=== PATIENT | female | born 1945 | race Caucasian/White ===

== ENCOUNTER → 2017-04-01 | Outpatient (CLI) | payer MEDICARE ==
[~2017-04-01] MED LIST: ESTR1PAT33 TD; LNS30CCR; PNT40TEC PO
== END ==
LOC: RAD 10:01
PROVIDERS: ATTEND Internal Medicine
DX: Z12.31 Encounter for screening mammogram for malignant neoplasm of breast (principal)
CPT/HCPCS: 77067

== ENCOUNTER → 2018-01-01 | Outpatient (CLI) | payer MEDICARE ==
[~2018-01-01] MED LIST changes: +CATHETER FLUSH 10 ML SYR IV PRN; +IOHEXOL 350 MG/ML 100 ML (OMNIPAQUE 350) VIAL IV ONE; +NS 250 ML (IVPB) BAG IV ONE
[2018-01-01 08:46] LABS: BUN/CREATININE RATIO 23; CREATININE SERUM 0.82 MG/DL (0.60-1.30); GFR ESTIMATED > 60
--- NOTE | 2018-01-01 09:47 | Diagnostic Imaging Report ---
PROCEDURE: CT sinuses without contrast TECHNIQUE: Multiple contiguous axial images were obtained through the sinuses without the use of intravenous contrast. Coronal and sagittal reformations were then performed. INDICATION: Ear and throat pain, particularly on the right side. FINDINGS: The frontal sinus is clear. The ethmoid air cells and the sphenoid sinus are clear. Bilateral maxillary sinuses are clear. No mucosal thickening or air-fluid levels are identified. The mastoids are well aerated. The ostiomeatal complexes are patent. The nasal septum is midline. There are osteoarthritic changes involving the temporomandibular joints bilaterally, greatest on the right where there is some flattening of the mandibular condyle and sclerosis. There is joint space narrowing on the right. Subchondral cyst formation of the mandibular condyles bilaterally is seen. IMPRESSION: 1. No evidence of sinusitis. 2. 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 Dictated by: Dictated on workstation # [id number]
--- NOTE | 2018-01-01 10:08 | Diagnostic Imaging Report ---
PROCEDURE: CT neck soft tissue with contrast. TECHNIQUE: Multiple contiguous axial images were obtained through the neck after the administration of contrast. INDICATION: Right ear and throat pain. Images through the basilar aspect of the brain reveal no abnormality. There is mild asymmetry of the level of the cerebellopontine angles with greater density in the right. This could be due to asymmetric venous distention. Nasopharynx and oropharynx are unremarkable in appearance. Parotid glands are normal and symmetric appearance. Artifact from metal dental implants limit evaluation. Submandibular salivary glands are also unremarkable in appearance. Dense calcification is seen in the anterior aspect of the right thyroid lobe without evidence of thyroid gland enlargement. There is no evidence of pathologic adenopathy seen within the cervical region. Upper lung braswell reveal diffuse centrilobular emphysema. The visualized paranasal sinuses are clear as are the mastoid air cells and middle ear cavities. IMPRESSION: Mild asymmetry at the level of cerebellopontine angles with greater density in the right could be artifactual. If clinically indicated, consideration could be given to MRI for further evaluation of the posterior fossa. Otherwise, there is no evidence of mass or pathologic adenopathy seen within the neck. There is diffuse cervical spondylosis with advanced degenerative disease at the C5-C6 level and apparent fusion of C6 and C7 vertebrae which may be chronic or congenital. Dictated by: Dictated on workstation # [id number]
== END ==
LOC: RAD 08:13
PROVIDERS: ATTEND Nurse Practitioner Family
DX: M47.812 Spondylosis without myelopathy or radiculopathy, cervical region (principal); Q04.8 Other specified congenital malformations of brain; M26.69 Other specified disorders of temporomandibular joint; H92.01 Otalgia, right ear
CPT/HCPCS: 36415; 70486; 70491; 82565; 84520

== ENCOUNTER → 2018-05-18 | Outpatient (CLI) | payer MEDICARE ==
[~2018-05-18] MED LIST changes: -CATHETER FLUSH 10 ML SYR IV PRN; -IOHEXOL 350 MG/ML 100 ML (OMNIPAQUE 350) VIAL IV ONE; -NS 250 ML (IVPB) BAG IV ONE
--- NOTE | 2018-05-18 13:24 | Diagnostic Imaging Report ---
INDICATION: Routine screening. COMPARISON: 04/01/2017 and 10/20/2015. TECHNIQUE: 2D and 3D bilateral screening mammography was performed with CAD. FINDINGS: Scattered fibroglandular densities are identified bilaterally. Scattered benign-appearing calcifications are again noted bilaterally. No malignant appearing microcalcifications are seen. There is a nodular density in the outer right breast posterior depth which is only seen on the exaggerated CC view. Additional views are recommended for further evaluation. No corresponding density on the MLO view is seen. This may represent a lymph node. The left breast is unremarkable. The axillae are unremarkable. IMPRESSION: There is a right breast density which is only seen on the exaggerated CC view. Additional views are recommended for further evaluation. ACR BI-RADS Category 0: Incomplete. (Needs additional imaging evaluation). Result letter will be mailed to the patient. Note: At least 10% of breast cancer is not imaged by mammography. Dictated by: Dictated on workstation # [id number]
== END ==
LOC: RAD 08:56
PROVIDERS: ATTEND Internal Medicine
DX: Z12.31 Encounter for screening mammogram for malignant neoplasm of breast (principal)
CPT/HCPCS: 77067

== ENCOUNTER → 2018-05-27 | Outpatient (CLI) | payer MEDICARE ==
--- NOTE | 2018-05-27 19:00 | Diagnostic Imaging Report ---
EXAMINATION: Ultrasound of the right breast limited. INDICATION: Abnormal mammogram. FINDINGS: The screening mammogram performed on 05/18/2018 noted a small nodular density in the lateral most aspect of the right breast. The diagnostic mammogram performed earlier today suggested that this finding was most likely a lymph node. On this study, there is indeed a hypoechoic lesion with a hyperechoic center in the 10 o'clock position of the breast roughly 10 cm from the nipple. This lesion measures 0.9 x 0.6 x 0.8 cm and has the typical appearance of a benign lymph node. I do suspect that this most likely corresponds to the density seen on the mammogram. Even so, it may prove worthwhile to have a short-term (six-month) follow-up mammogram for continued evaluation. There is also another smaller lymph node measuring 0.5 x 0.5 x 0.6 cm in the same area roughly 12 cm from the nipple. During the course of the exam, a 3.8 x 1.2 x 1.9 cm lymph node was also identified in the right axilla. While this lymph node is enlarged, I suspect it is due to fatty replacement and not to neoplastic involvement. IMPRESSION: 1. The nodular density seen on the screening mammogram is felt to represent a lymph node. A six-month follow-up exam will be recommended for continued evaluation. 2. There is no evidence of malignancy. 3. The enlarged lymph node in the right axilla appears to be replaced by fat and consequently is most likely a benign process. ACR BI-RADS Category 3: Probably benign findings. Dictated by: Dictated on workstation # [id number]
--- NOTE | 2018-05-28 19:15 | Diagnostic Imaging Report ---
INDICATION: Abnormal mammogram. EXAMINATION: Right breast digital diagnostic mammogram with CAD. The current study was also evaluated with a Computer Aided Detection (CAD) system. FINDINGS: The recent screening mammogram of 05/18/2018 noted a density in the far lateral aspect of the right breast on the XCC view. This finding was not evident on the XCC view of the 04/01/2017 exam, although there is more of the breast tissue included on the current exam. There seems to be a corresponding density on the MLO view. This density was present on the prior study of 10/18/2014 and I suspect that this density is a lymph node. Even so, I would recommend that ultrasound of the right breast be performed for further study. IMPRESSION: Ultrasound of the right breast would be recommend for further evaluation. ACR BI-RADS Category 0: Incomplete. (Needs additional imaging evaluation). Result letter will be mailed to the patient. Note: At least 10% of breast cancer is not imaged by mammography. Dictated by: Dictated on workstation # [id number]
== END ==
LOC: RAD 07:42
PROVIDERS: ATTEND Internal Medicine
DX: N63.10 Unspecified lump in the right breast, unspecified quadrant (principal)

== ENCOUNTER → 2019-02-04 | Outpatient (CLI) | payer MEDICARE ==
--- NOTE | 2019-02-04 09:46 | Diagnostic Imaging Report ---
INDICATION: HISTORY OF MELANOMA COMPARISON: 08/05/2016 FINDINGS: Frontal and lateral views of the chest demonstrate normal heart size and pulmonary vascularity. The lungs are clear. There are no signs of infiltrate, pleural effusions or pneumothoraces. The visualized osseous structures show no acute abnormalities. IMPRESSION: 1. No acute process. No signs of infiltrates, effusions or pneumothoraces. Dictated by: Dictated on workstation # [id number]
== END ==
LOC: RAD 08:51
PROVIDERS: ATTEND Nurse Practitioner
DX: Z85.820 Personal history of malignant melanoma of skin (principal)
CPT/HCPCS: 71046

== ENCOUNTER → 2019-05-19 | Outpatient (CLI) | payer MEDICARE ==
--- NOTE | 2019-05-19 12:28 | Diagnostic Imaging Report ---
INDICATION: Palpable lump in the left breast. COMPARISON: Correlation is made with the diagnostic mammogram from earlier t his same day. FINDINGS: Sonographic interrogation of the area of lump in the lateral left breast was performed. No sonographic abnormality is seen. No solid or cystic mass is detected. IMPRESSION: No sonographic abnormality is seen. Close clinical and self breast exams are recommended to confirm stability of the palpable abnormality. ACR BI-RADS Category 1: Negative. Dictated by: Dictated on workstation # [id number]
--- NOTE | 2019-05-19 12:30 | Diagnostic Imaging Report ---
INDICATION: Left breast lump. COMPARISON: 05/18/2018. TECHNIQUE: 2D and 3D bilateral diagnostic mammography was performed with CAD. FINDINGS: Scattered fibroglandular densities are identified bilaterally. The parenchymal pattern is stable. No mass or malignant-appearing microcalcifications are seen. There are benign calcifications bilaterally. The axillae are unremarkable. IMPRESSION: Stable bilateral mammograms. No suspicious findings are seen. Even so, directed sonographic interrogation of the area of palpable abnormality in the upper-outer left breast is recommended and will be performed today. ACR BI-RADS Category 0: Incomplete. (Needs additional imaging evaluation). Result letter will be mailed to the patient. Note: At least 10% of breast cancer is not imaged by mammography. Dictated by: Dictated on workstation # [id number]
== END ==
LOC: RAD 09:30
PROVIDERS: ATTEND Internal Medicine
DX: Z12.31 Encounter for screening mammogram for malignant neoplasm of breast (principal); N63.20 Unspecified lump in the left breast, unspecified quadrant
CPT/HCPCS: 76642; 77066

== ENCOUNTER → 2020-02-18 | Outpatient (CLI) | payer MEDICARE | LOC: LABNPT 13:40 | PROVIDERS: ATTEND Internal Medicine | DX: R50.9 Fever, unspecified (principal); R53.83 Other fatigue; J02.9 Acute pharyngitis, unspecified; R51 Headache | CPT/HCPCS: 87430; 87635; 87804 ==

== ENCOUNTER 2020-05-07 09:54 | Emergency (ER) | payer MEDICARE ==
--- NOTE | 2020-05-07 10:10 | NUR ---
PT AT NURSES [facility] ET STATES SHE IS ONLY HERE FOR A COVID TEST AND WOULD GO HOME AND DUE IT SOME OTHER TIME. PT WATCHES SEVERAL EMRGENT PEOPLE BEING BROUGHT INTO COVID ER AND DECIDED TO LEAVE AFTER.
--- OUTSIDE RECORDS SUMMARY | 2020-05-07 10:50 | XMS REPORT | Encounter Summary ---
Author Author [facility] Organization [facility] Address Unknown Phone Unavailable Care Team Providers Care Digital Color Press Operator Name Role Phone Farhat Varghese PCP Encounter Details Care Team Description Date Type Department [facility] Provider, MD Torres 04/12/2015 [facility] Visit Social History Date Tobacco Use Types Packs/Day Years Used Never Assessed Sex Assigned at Date Recorded Not on file Industry Job Start Date Occupation Not on file Not on file Not on file Travel End Travel History Travel Start No recent travel history available. documented as of this encounter Plan of Treatment Not on filedocumented as of this encounter Visit Diagnoses Not on filedocumented in this encounter
--- OUTSIDE RECORDS SUMMARY | 2020-05-07 10:50 | XMS REPORT | Encounter Summary ---
Author Author [facility] Organization [facility] Address Unknown Phone Unavailable Care Team Providers Care Marine Engine Machinist Name Role Phone Farhat Varghese PCP Encounter Details Care Team Description Date Type Department Dyana Álvarez RN [facility]14[facility] [address] [place] [address] Social History Date Tobacco Use Types Packs/Day Years Used Former Smoker Sex Assigned at Date Recorded Not on file Industry Job Start Date Occupation Not on file Not on file Not on file Travel End Travel History Travel Start No recent travel history available. documented as of this encounter Plan of Treatment Not on filedocumented as of this encounter Visit Diagnoses Not on filedocumented in this encounter
--- OUTSIDE RECORDS SUMMARY | 2020-05-07 10:50 | XMS REPORT | Encounter Summary ---
Author Author [facility] Organization [facility] Address Unknown Phone Unavailable Care Team Providers Care Enamel Buffer Name Role Phone Farhat Varghese PCP Encounter Details Care Team Description Date Type Department Lisa Luz RN 04/13/2015 Orders [place] [facility] [address] [place] [id number] Social History Date Tobacco Use Types Packs/Day Years Used Never Assessed Sex Assigned at Date Recorded Not on file Industry Job Start Date Occupation Not on file Not on file Not on file Travel End Travel History Travel Start No recent travel history available. 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 Comprehensive electrophysiology stud y including catheter placement within the right atrium, righ t ventricle, CS and His position for recording and stimulation purposes. 2. 3D electroanatomical mapping using Aviacomm system. 3. Radiofrequency catheter ablation of the slow pathway. 4. Postablation electrophysiology study with attempted arrhythmia induction. 5. Programmed stimulation during isopro terenol administration. ATTENDING STACKER: Tiffany Foster FELLOW STACKER: Tj Varghese COMPLICATIONS: None. ESTIMATED BLOOD LOSS: 10 ml. ANESTHESIA: Intravenous sedation and lo stef anesthetic INDICATIONS FOR THE PROCEDURE: The patient is a 69 y.o. year-old femal e with a history of recurrent palpitations and documented s upraventricular tachycardia that was a short RP tachyca rdia with a HR of ~ 200 BPM. . PROCEDURE AND FINDINGS: After informed consent was obtained, th e patient was taken to the electrophysiology laboratory in a fasti ng state. Bilateral groins were prepped and draped in the usual st erile fashion. Approximately 10 milliliters of 2% lido sonal solution were infiltrated into the each area overlyin g the femoral veins. Using the modified Seldinger technique and un jocelyne fluoroscopic guidance, 2 short 7 sheaths were inserted in each vein. Diagnostic quadrapolar catheters were advanced thr ough these sheaths to the right ventricular apex, the high right atrium and the His position as well as a decapolar cathete r to the CS for pacing and recording. 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 The tachycardia cycle le ngth was 382 msec and the septal VA time was 58 msec. Isoproter enol was not required to induce the tachycardia. VA conduction was decremental and there was no other inducible tachycardia. At this point, the atrial catheter was removed and replaced with a 4mm tip EPT standard curve, extended distal mapping and ablation catheter to identify optimal s ites for ablation. Radiofrequency ablation was performed a t a maximum power of 50 hartley and maximum temperature of 55 deg francoise with resulting runs of accelerated junctional rhythm, parti cularly with the first application. Following ablation, there no evidence o f residual slow pathway conduction. There was no inducible ta chycardia either without or with isoproterenol. The catheters and sheaths were removed from the patient and hemostasis was achieved with direct pre ssure. The patient was transferred to the recovery area in sta ble condition. BASELINE ELECTROPHYSIOLOGIC STUDY: The rhythm was Sinus at a cycle length of 1143 msec, a CO interval of 170 msec, a QRS of 90 msec, a QT interval of 433 msec, an AH interval of 135 msec and an HV interval of 44 msec. The AV block cycle length was 360 msec. The AV node fast pathway effective refractory period was 240 m[address] c at a drive train cycle length of 600 msec. Reproducible echo beats occurred initially at [address] a [address] train of 600 m sec. The slow pathway effective refractory was less than 240 msec. The VA block cycle length was 360 msec. The VAERP was 34 0 at 600 msec ELECTROPHYSIOLOGIC STUDY ON ISOPROTEREN OL: The rhythm was Sinus at a cycle length of 560 msec, a CO interval of 120 msec, a QRS of 73 msec, a QT int erval of 315 msec,. The AV block cycle length was 300 msec. The AV node fast pathway effective refractory period was less th an [address] train cycle length of 450 msec. The VA block cycle length was 240 msec. POST-ABLATION ELECTROPHYSIOLOGIC STUDY: The rhythm was Sinus at a cycle length of 680 msec, a CO interval of 189 msec, a QRS of 72 msec, a QT int erval of 349 msec, an AH interval of 82 msec and an HV interval of 39 msec. The AV block cycle length was 380 msec. The AV node fast pathway effective refractory period was 330 msec at a dri ve train cycle length of 600 msec. The VA block cycle length was 350 msec. SUMMARY: Successful catheter ablation f or atrioventricular herman reentrant tachycardia PLAN: 1. Discontinue metoprolol. 2. Follow-up with an [facility] EP nurse dick grace in 2 months and with the patient's primary physician apuvra ortiz. I was present for and supervised the [facility] electrophysiology fellow throughout the entire procedure. Trip Freire MD documented in this encounter Visit Diagnoses Not on filedocumented in this encounter
--- OUTSIDE RECORDS SUMMARY | 2020-05-07 10:50 | XMS REPORT | Encounter Summary ---
Author Author [facility] Organization [facility] Address Unknown Phone Unavailable Care Team Providers Care Cryptozoologist Name Role Phone Farhat Varghese PCP Encounter Details Care Team Description Date Type Department 04/18/2015 [facility] - [facility] C Visit Social History Date Tobacco Use Types Packs/Day Years Used Quit: 04/17/1999 Former Smoker 1.5 30 Smokeless Tobacco: Never Used Comments: current nicorette gum use nilson y Drinks/Week oz/Week Comments Alcohol Use 14 Glasses of wine 14.0 2 glasses of wine per night Yes Sex Assigned at Date Recorded Not on file Industry Job Start Date Occupation Not on file Not on file Not on file Travel End Travel History Travel Start No recent travel history available. documented as of this encounter Plan of Treatment Not on filedocumented as of this encounter Visit Diagnoses Not on filedocumented in this encounter
--- OUTSIDE RECORDS SUMMARY | 2020-05-07 10:50 | XMS REPORT | Encounter Summary ---
Author Author [facility] Organization [facility] Address Unknown Phone Unavailable Care Team Providers Care Roller Checker Name Role Phone Farhat Varhgese PCP Encounter Details Care Team Description Date Type Department [facility] [place] [address] [facility] [address] [place] [address] [phone] [facility], Physician 04/17/2015 Hospital [facility] CVPREP Recovery H4S - Encounter [id number] [facility] 04/18/2015 [place] [address] Social History Date Tobacco Use Types Packs/Day [...] history available. documented as of this encounter Last Filed Vital Signs Reading Time Taken Comments Vital Sign 109/54 04/18/2015 7:57 AM CDT Blood Pressure 70 04/18/2015 7:57 AM CDT Pulse 36.6 C (97.8 F) 04/18/2015 7:57 AM CDT Temperature 18 04/18/2015 7:57 AM CDT Respiratory Rate 96% 04/18/2015 7:57 AM CDT Oxygen Saturation - - Inhaled Oxygen Concentration 67.1 kg (147 lb 14.9 oz) 04/18/2015 12:00 AM CDT Weight 165.1 cm (5' 5") 04/17/2015 9:46 AM CDT Height 24.62 04/17/2015 9:46 AM CDT Body Mass Index documented in this encounter Discharge Summaries * Juanita Gutierrez RN ANP - 04/18/2015 8:13 AM CDT [facility] Discharge Summary- Post Ablation Name: Milagro Mock CPI: [id number] Date of : 1945 Primary care physician: Farhat Varghese MD Date of admission: 04/17/2015 Date of discharge: 04/18/2015 Admitting physician: Physician [facility] We are discharging Milagro Mock from [facility] in the [facility] on . As you know, she is a 69 y.o. female patient with a his tory of tachypalpitations despite metoprolol, which was associated with increase d fatigue who was seen and examined by Dr. Freire and deemed appropriate for a n electrophysiology study and ablation procedure. The patient underwent electrophysiology study and radiofrequency ablation on . Dr. Trip Freire MD performed a successful and uncomplicated electrophysiol ogy study and ablation procedure. 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 We will plan on discontinuing metoprolol. We will make arrangements for follow up at two months in our [facility] office with our EP advanced practice provider. Physical Examination: Vitals: BP 109/54 | Pulse 70 | Temp(Src) 36.6 C (97.8 F) (Oral) | Resp 18 | Ht 1.651 m (5' 5") | Wt 67.1 kg (147 lb 14.9 oz) | BMI 24.62 kg/m2 | SpO2 96% -Chest x-ray reviewed showing no effusion or pneumothorax. -EKG reveals SR rate 65 bpm. DE 200 ms QT 420 ms/ cQT 437 ms. -Neuro exam was intact. -Lungs were clear. -Cardiac examination reveals a regular rate and rhythm. -Abdomen is soft, nontender, and nondistended. -The procedure site is free from hematoma or swelling. There was no erythema. -The dressings is dry and intact. Left groin site with slight eccymosis no bruit or hematoma. -Extremities are free from clubbing, cyanosis, or edema. -Pulses are 2+ and equal bilaterally. -Skin is free of rashes. Laboratory Findings: CBC: Most Recent Result within the last 7 days Lab Units 04/17/15 0958 WBC TH/uL 6.91 HEMOGLOBIN g/dL 12.7 HEMATOCRIT % 39 PLATELET COUNT TH/uL 291 BMP: Most Recent Result within the last 7 days Lab Units 04/17/15 0958 SODIUM MEQ/L 142 POTASSIUM MEQ/L 4.9 CHLORIDE MEQ/L 107 CARBON DIOXIDE MEQ/L 28 BLOOD UREA NITROGEN mg/dL 22 CALCIUM mg/dL 9.8 INR: Most Recent Result within the last 7 days Lab Units 04/17/15 0958 INR 1.1 Discharge Diagnoses: Active Hospital Problems Diagnosis SNOMED CT(R) Date Noted Supraventricular tachycardia SUPRAVENTRICULAR TACHYCARDIA 04/17/2015 Resolved Hospital Problems Diagnosis SNOMED CT(R) Date Noted Date Resolved No resolved problems to display. Procedures: Electrophysiological study and electrophysiology study and radiofrequency ablati on that was performed by Dr. Trip Freire MD on 04/17/2015. PROCEDURES PERFORMED: 1. Comprehensive electrophysiology study including catheter placement within the right atrium, right ventricle, CS and His position for recording and stimulation purposes. 2. 3D electroanatomical mapping using the KAYLEY system. 3. Radiofrequency catheter ablation of the slow pathway. 4. Postablation electrophysiology study with attempted arrhythmia induction. 5. Programmed stimulation during isoproterenol administration. Condition at discharge: Stable Disposition: Home Diet: Heart healthy diet Discharge Instructions: per Dr. Trip Freire MD 1. The patient will continue a heart healthy diet. 2. Activity restrictions has been reviewed with the patient and includes avoid ance of lifting greater than 10 pounds for the next week. The patient is to mon itor the procedure site for bleeding, drainage, progressive swelling, the presen ce of fever or chills and to call our office should any of these symptoms occur. 3. The patient should also monitor for symptoms of fever greater than 101, cou gh that is persistent in nature, exertional dyspnea with minimal activity, persi stent tachy palpitations greater than 24 hours or symptomatic, difficult or pain ful swallowing and to be in touch with our office regarding followup. Follow up: As noted above, we will schedule this patient for follow-up in two mo hs in our [facility] office with our EP advanced practice provider. Discharge coordination time: Greater than 30 minutes. Discharge medications: Medication List CONTINUE taking these medications CENTRUM SILVER ORAL 1 tablet, Oral, Daily estradiol 0.5 MG tablet Commonly known as: ESTRACE 0.5 mg, Oral, Daily FLONASE 50 mcg/actuation nasal spray Generic drug: fluticasone 1 spray, Nasal, Daily loratadine 10 mg tablet Commonly known as: CLARITIN 10 mg, Oral, Daily pantoprazole 40 MG tablet Commonly known as: PROTONIX 40 mg, Oral, Every morning triamterene-hydrochlorothiazide 37.5-25 mg per capsule Commonly known as: DYAZIDE 1 capsule, Oral, Daily We appreciate the opportunity to have participated in this patients care. Pl ease do not hesitate to contact us should you have any questions concerning Marie Mock's care. Juanita Gutierrez 04/18/2015 8:13 AM documented in this encounter Discharge Instructions * Attachments The following attachments cannot be sent through Care Everywhere.* CARDIAC ABLATION, DISCHARGE INSTRUCTIONS FOR (THAI) documented in this encounter Medications at Time of Discharge Start Date End Date Medication Sig Dispensed Refills estradiol (ESTRACE) 0.5 Take 0.5 mg 0 MG tablet by mouth daily. 03/01/2015 estradiol (ESTRACE) 0.5 take 1 tablet 1 0 MG tablet (0.5MG) by oral route every day fluticasone (FLONASE) 50 Use 1 spray 0 mcg/actuation nasal spray in each nostril daily. 04/12/2015 fluticasone (FLONASE) 50 inhale 1 1 0 mcg/actuation nasal spray spray each nostril by intranasal route every day in each nostril FOLIC Take 1 tablet 0 ACID/MULTIVIT-MIN/LUTEIN by mouth (CENTRUM SILVER ORAL) daily. loratadine (CLARITIN) 10 Take 10 mg by 0 mg tablet mouth daily. 03/01/2015 loratadine (CLARITIN) 10 take 1 tablet 1 0 mg tablet (10MG) by oral route every day 03/01/2015 metoprolol succinate take 1 tablet 30 6 (TOPROL-XL) 50 MG 24 hr by oral route tablet every day 03/01/2015 jxepplqf-zxazrhk-exby-lut take one 1 0 ein (CENTRUM SILVER ULTRA tablet daily WOMEN'S) Tab pantoprazole (PROTONIX) Take 40 mg by 0 40 MG tablet mouth every morning. 03/01/2015 pantoprazole (PROTONIX) take 1 tablet 1 0 40 MG tablet (40MG) by oral route every day triamterene-hydrochloroth Take 1 0 iazide (DYAZIDE) 37.5-25 capsule by mg per capsule mouth daily. 03/01/2015 triamterene-hydrochloroth take 1 tablet 30 0 iazide (MAXZIDE-25) by ORAL route 37.5-25 mg per tablet every day 07/01/2014 06/07/2015 estradiol (ESTRACE) 0.5 take 1 tablet 1 0 MG tablet (0.5MG) by oral route every day 07/01/2014 06/07/2015 fluticasone (CUTIVATE) apply by 1 0 0.005 % ointment topical route 2 times every day a thin layer to the affected area(s) (temporary) 07/01/2014 06/07/2015 loratadine (CLARITIN) 10 take 1 tablet 1 0 mg tablet (10MG) by oral route every day 01/19/2015 06/07/2015 metoprolol succinate TAKE ONE 30 6 (TOPROL-XL) 25 MG 24 hr TABLET BY tablet MOUTH ONCE DAILY 07/21/2014 06/07/2015 metoprolol succinate take 1 tablet 30 5 (TOPROL-XL) 25 MG 24 hr (25MG) by tablet oral route every day 01/31/2015 06/07/2015 metoprolol succinate take 1 tablet 30 6 (TOPROL-XL) 50 MG 24 hr by oral route tablet every day 07/01/2014 06/07/2015 pyovyqyu-uockvad-geif-lut take one 1 0 ein (CENTRUM SILVER ULTRA tablet daily WOMEN'S) Tab 07/01/2014 06/07/2015 pantoprazole (PROTONIX) take 1 tablet 1 0 40 MG tablet (40MG) by oral route every day 07/01/2014 06/07/2015 propranolol (INDERAL) 60 take 1 tablet 30 3 MG tablet (60MG) by oral route NEEDED for rapid heartbeats documented as of this encounter Procedure Notes * Trip Freire MD - 04/17/2015 4:21 PM CDT Associated Order(s): ELECTROPHYSIOLOGY STUDY POSSIBLE RFA OF SVT [facility] CARDIAC ELECTROPHYSIOLOGY SERVICE OPERATIVE REPORT Date of Procedure: 04/17/2015 PRE-OPERATIVE DIAGNOSIS: Supraventricular tachycardia POST-OPERATIVE DIAGNOSIS: AV herman reentrant tachycardia PROCEDURES PERFORMED: 1. Comprehensive electrophysiology study including catheter placement within the right atrium, right ventricle, CS and His position for recording and stimulation purposes. 2. 3D electroanatomical mapping using the KAYLEY system. 3. Radiofrequency catheter ablation of the slow pathway. 4. Postablation electrophysiology study with attempted arrhythmia induction. 5. Programmed stimulation during isoproterenol administration. ATTENDING WOOD HANDLER: Trip Freire MD FELLOW WOOD HANDLER: Tj Varghese COMPLICATIONS: None. ESTIMATED BLOOD LOSS: 10 ml. ANESTHESIA: Intravenous sedation and local anesthetic INDICATIONS FOR THE PROCEDURE: The patient is a 69 y.o. year-old female with a history of recurrent palpitation s and documented supraventricular tachycardia that was a short RP tachycardia wi th a HR of ~ 200 BPM. . PROCEDURE AND FINDINGS: After informed consent was obtained, the patient was taken to the electrophysiol ogy laboratory in a fasting state. Bilateral groins were prepped and draped in t he usual sterile fashion. Approximately 10 milliliters of 2% lidocaine solution were infiltrated into the each area overlying the femoral veins. Using the modif ied Seldinger technique and under fluoroscopic guidance, 2 short 7 sheaths were inserted in each vein. Diagnostic quadrapolar catheters were advanced through these sheaths to the right ventricular apex, the high right atrium and the His position as well as a decapolar catheter to the CS for pacing and recording. The baseline electrophysiologic study was notable for dual AV herman physiology a nd inducible supraventricular tachycardia confirmed to be typical AV herman reent rant tachycardia by a short septal VA time and termination with V pacing without atrial activation. The tachycardia cycle length was 382 msec and the septal VA time was 58 msec. Isoproterenol was not required to induce the tachycardia. VA conduction was decremental and there was no other inducible tachycardia. At this point, the atrial catheter was removed and replaced with a 4mm tip EPT s tandard curve, extended distal mapping and ablation catheter to identify optimal sites for ablation. Radiofrequency ablation was performed at a maximum power of 50 hartley and maximum temperature of 55 degrees with resulting runs of accelera meagan junctional rhythm, particularly with the first application. Following ablation, there no evidence of residual slow pathway conduction. Ther e was no inducible tachycardia either without or with isoproterenol. The catheters and sheaths were removed from the patient and hemostasis was achie yasmany with direct pressure. The patient was transferred to the recovery area in s table condition. BASELINE ELECTROPHYSIOLOGIC STUDY: The rhythm was Sinus at a cycle length of 1143 msec, a DE interval of 170 msec, a QRS of 90 msec, a QT interval of 433 msec, an AH interval of 135 msec and an H V interval of 44 msec. The AV block cycle length was 360 msec. The AV node fast pathway effective refractory period was [address] train cycle length of 600 msec. Reproducible echo beats occurred initially at [address] a [address] e train of 600 msec. The slow pathway effective refractory was less than 240 m sec. The VA block cycle length was 360 msec. The VAERP was 340 at 600 msec ELECTROPHYSIOLOGIC STUDY ON ISOPROTERENOL: The rhythm was Sinus at a cycle length of 560 msec, a DE interval of 120 msec, a QRS of 73 msec, a QT interval of 315 msec,. The AV block cycle length was 300 msec. The AV node fast pathway effective refractory period was less than 200 m sec at a drive train cycle length of 450 msec. The VA block cycle length was 2 40 msec. POST-ABLATION ELECTROPHYSIOLOGIC STUDY: The rhythm was Sinus at a cycle length of 680 msec, a DE interval of 189 msec, a QRS of 72 msec, a QT interval of 349 msec, an AH interval of 82 msec and an HV interval of 39 msec. The AV block cycle length was 380 msec. The AV node fast p athway effective refractory period was [address] train cycle length of 600 msec. The VA block cycle length was 350 msec. SUMMARY: Successful catheter ablation for atrioventricular herman reentrant tachy cardia PLAN: 1. Discontinue metoprolol. 2. Follow-up with an [facility] EP nurse practitioner in 2 months and with the patient 's primary physician thereafter. I was present for and supervised the cardiac electrophysiology fellow throughout the entire procedure. Trip Freire MD documented in this encounter Nursing Notes * Enriqueta Becerra RN - 04/18/2015 10:00 AM CDT Pt discharge instructions reviewed (written and verbal) with pt and spouse. The y voice understanding of all instructions. Pt d/c'd via ambulation with all bel ongings without difficulty with [facility] staff accompanying pt to private vehicle to home, self care. documented in this encounter Miscellaneous Notes * Plan of Care - Ruben Gonzalez RN - 04/18/2015 2:11 AM CDT Problem: Knowledge Deficit Goal: Patient/family/caregiver demonstrates understanding of disease process, tr eatment plan, medications, and discharge instructions Outcome: Progressing Problem: Pain Goal: Patients pain/discomfort is manageable Outcome: Progressing Problem: Skin Integrity Goal: Skin integrity is maintained or improved Outcome: Progressing * Sedation Documentation - Trip Freire MD - 04/17/2015 12:32 PM CDT [facility] Pre-Sedation Assessment H&P Update Chief complaint/ History of present illness/ Indication for procedure: SVT Planned Procedure/ Treatment: Electrophysiology Study and RF Ablation History and Physical Status: Current H&P (<30 days) on chart, reviewed, and physical exam performed within 24 hours of procedure. No changes noted. Pre-Sedation/[place] ASA Status: I - Normal healthy patient Plan for Anesthesia: Level 2 (Moderate - EP Lab) Airway Assessment: WNL I saw and examined the patient. I reviewed and agree with the cardiovascular fel low's note. Trip Freire MD documented in this encounter Plan of Treatment Not on filedocumented as of this encounter Procedures Comments Procedure Name Priority Date/Time Associated Diag nosis LAB SUMMARY 04/19/2015 2:27 AM CDT ELECTROPHYSIOLOGY STUDY Routine 04/18/2015 POSSIBLE RFA OF SVT 9:07 AM CDT ECG Routine 04/18/2015 4:03 AM CDT OXYGEN Routine 04/17/2015 4:33 PM CDT PULSE OXIMETRY, Routine 04/17/2015 CONTINUOUS 4:33 PM CDT CBC AND DIFF (MANUAL DIFF STAT 04/17/2015 IF NECESSARY) 9:58 AM CDT COAGULATION SCREEN STAT 04/17/2015 9:58 AM CDT BASIC METABOLIC PANEL STAT 04/17/2015 9:58 AM CDT ECG Routine 04/17/2015 9:41 AM CDT documented in this encounter Results * LAB SUMMARY (04/19/2015 2:27 AM CDT) Narrative Performed At This result has an attachment that is n ot available. Ordered by an unspecified provider. * Electrocardiogram (ECG) (04/18/2015 4:03 AM CDT) Only the most recent of 2 results within the time period is included. Specimen Narrative Performed At [facility] Test Date: 2015-04-18 Pat Name: MILAGRO MOCK Department: HS4 Room: [facility] Gender: F Overseamer: [id number] : 1945 Requested By: Order Number: [id number] Doug MD: Malina Merlos Measurements Intervals [place] Rate: 65 P: DE: QRS: 13 QRSD: 72 T: 34 QT: 420 QTc: 437 Interpretive Statements sinus rhythm Electronically Signed On 04-19-2015 18:1 8:52 CDT by Malina Merlos Performing Organization Address City/State/Zipcode Ph one Number [facility] * Coagulation Screen (04/17/2015 9:58 AM CDT) Protime 13.7 11.4 - 15.0 sec [facility] INR 1.1 0.8 - 1.2 [facility] APTT 30 22 - 34 sec [facility] Fibrinogen 238 146 - 390 mg/dL [facility] Specimen Blood Performing Organization Address City/[facility] one Number [facility] [address] [place] [address] LABORATORIES * CBC and Diff (manual diff if necessary) (04/17/2015 9:58 AM CDT) WBC 6.91 4.00 - 11.00 TH/uL [facility] RBC 4.27 4.00 - 5.00 MIL/uL [facility] Hemoglobin 12.7 12.0 - 15.0 g/dL [facility] Hematocrit 39 36 - 45 % [facility] MCV 90 80 - 99 fL [facility] MCH 30 27 - 34 pg [facility] MCHC 33 32 - 36 % [facility] RDW 12.4 9.0 - 14.5 % [facility] Platelet Count 291 140 - 400 TH/uL [facility] MPV 10.4 9.4 - 12.3 fL [facility] Nucleated RBCs 0 0 - 0 /[address] [facility] % Neutrophils 55 45 - 78 % [facility] %Lymphocytes 33 15 - 47 % [facility] %Monocytes 7 0 - 12 % [facility] %Eosinophils 3 0 - 7 % [facility] %Basophils 1 0 - 2 % [facility] % Imm Grans 0 0 - 1 % [facility] # Granulocytes 3.84 1.70 - 6.80 TH/uL [facility] # Lymphocytes 2.29 1.00 - 3.30 TH/uL [facility] # Monocytes 0.51 0.20 - 0.90 TH/uL [facility] # Eosinophils 0.18 0.00 - 0.40 TH/uL [facility] # Basophils 0.09 0.00 - 0.10 TH/uL [facility] Specimen Blood Performing Organization Address City/[facility] Ph one Number [facility] [address] [place] [address] LABORATORIES * Basic Metabolic Panel (04/17/2015 9:58 AM CDT) Sodium 142 133 - 147 MEQ/L [facility] Potassium 4.9 3.5 - 5.3 MEQ/L [facility] Chloride 107 96 - 112 MEQ/L [facility] Carbon Dioxide 28 20 - 32 MEQ/L [facility] Anion Gap 7 5 - 17 [facility] Calcium 9.8 8.4 - 10.5 mg/dL [facility] Glucose 94 70 - 100 mg/dL [facility] Blood Urea 22 7 - 26 mg/dL [facility] Creatinine 0.7 0.4 - 1.1 mg/dL [facility] eGFR Female AA 99 60 - 200 [facility] Comment: REGIONAL Chronic Kidney Disease less LABORATORIES than 60 mL/min/1.73 sq.m Kidney failure less than 15 mL/min/1.73 sq.m eGFR Female 82 60 - 200 [facility] Non-AA Comment: REGIONAL Chronic Kidney Disease less LABORATORIES than 60 mL/min/1.73 sq.m Kidney failure less than 15 mL/min/1.73 sq.m Specimen Blood Performing Organization Address City/State/[facility] Ph one Number [facility] [address] [place] [address] LABORATORIES documented in this encounter Visit Diagnoses Diagnosis Supraventricular tachycardia (HCC) Other specified cardiac dysrhythmias documented in this encounter Administered Medications Action Date Dose Rate Site Medication Order MAR Action 04/17/2015 3:26 PM CDT 50 mcg fentaNYL (SUBLIMAZE) 50 mcg/mL injection Given Intravenous, Code/trauma/sedation medication, Starting Fri04/17/15 at 143 2 50 mcg Given 04/17/2015 2:43 PM CDT 50 mcg Given 04/17/2015 2:32 PM CDT 04/17/2015 3:47 PM CDT 2 mcg/min 0.6 mL/hr Other isoproterenol HCl (ISUPREL) injection New Bag Intravenous, Code/trauma/sedation continuous med, Starting Fri04/17/15 at 1547 04/17/2015 2:40 PM CDT 20 mL Other lidocaine (pf) (XYLOCAINE-MPF) 20 mg/mL Given (2 %) injection Code/trauma/sedation medication, Starting Fri04/17/15 at 1434 10 mL Other Given 04/17/2015 2:34 PM CDT 04/17/2015 3:21 PM CDT 1 mg midazolam (VERSED) injection Given Intravenous, Code/trauma/sedation medication, Starting Fri04/17/15 at 140 8 1 mg Given 04/17/2015 2:43 PM CDT 1 mg Given 04/17/2015 2:08 PM CDT 04/17/2015 2:11 PM CDT 1 mg midazolam (VERSED) injection Given Intravenous, Code/trauma/sedation medication, Starting Fri04/17/15 at 141 1 04/18/2015 6:22 AM CDT 40 mg pantoprazole (PROTONIX) EC tablet 40 mg Given 40 mg, Oral, Every morning, First dose on Fri04/18/15 at 0700, DO NOT CRUSH OR CHEW., 04/18/2015 8:38 AM CDT 1 capsule triamterene-hydrochlorothiazide Given (DYAZIDE) 37.5-25 mg per capsule 1 capsule 1 capsule, Oral, Daily, First dose on Fri04/17/15 at 1700 documented in this encounter
--- OUTSIDE RECORDS SUMMARY | 2020-05-07 10:50 | XMS REPORT | Encounter Summary ---
Author Author [facility] Organization [facility] Address Unknown Phone Unavailable Care Team Providers Care Rocket Propellant Plant Supervisor Name Role Phone Farhat Varghees PCP Encounter Details Care Team Description Date Type Department Joel Ramirez RN 04/13/2015 Orders for [address] [id number] Social History Date Tobacco Use Types Packs/Day [...]
--- OUTSIDE RECORDS SUMMARY | 2020-05-07 10:50 | XMS REPORT | Clinical Summary ---
Author Author [facility] Organization [facility] Address Unknown Phone Unavailable Care Team Providers Care Route Driver Name Role Phone Farhat Varghese PCP Allergies No Known Allergies Medications End Date Status Medication Sig Dispensed Refills Start Date Active FOLIC Take 1 tablet 0 ACID/MULTIVIT-MIN/LUTEIN by mouth (CENTRUM SILVER ORAL) daily. Active loratadine (CLARITIN) 10 Take 10 mg by 0 mg tablet mouth daily. Active estradiol (ESTRACE) 0.5 Take 0.5 mg 0 MG tablet by mouth daily. Active fluticasone (FLONASE) 50 Use 1 spray 0 mcg/actuation nasal spray in each nostril daily. Active pantoprazole (PROTONIX) Take 40 mg by 0 40 MG tablet mouth every morning. Active triamterene-hydrochloroth Take 1 0 iazide (DYAZIDE) 37.5-25 capsule by mg per capsule mouth daily. Active fluticasone (FLONASE) 50 inhale 1 1 0 0 mcg/actuation nasal spray spray each 5 nostril by intranasal route every day in each nostril Active jpcwzhrw-kogyujd-avic-lut take one 1 0 ein (CENTRUM SILVER ULTRA tablet daily 5 WOMEN'S) Tab Active loratadine (CLARITIN) 10 take 1 tablet 1 0 mg tablet (10MG) by 5 oral route every day Active estradiol (ESTRACE) 0.5 take 1 tablet 1 0 MG tablet (0.5MG) by 5 oral route every day Active metoprolol succinate take 1 tablet 30 6 (TOPROL-XL) 50 MG 24 hr by oral route 5 tablet every day Active pantoprazole (PROTONIX) take 1 tablet 1 0 40 MG tablet (40MG) by 5 oral route every day Active triamterene-hydrochloroth take 1 tablet 30 0 iazide (MAXZIDE-25) by ORAL route 5 37.5-25 mg per tablet every day Active Problems Problem Noted Date Supraventricular tachycardia 04/17/2015 Family History Medical History Relation Name Comments Other Sister Diagnosed with CAD, 2 major attacks Relation Name Status Comments Sister Social History Date Tobacco Use Types Packs/Day [...] Travel Start No recent travel history available. Last Filed Vital Signs Reading Time Taken [...] 04/17/2015 9:46 AM CDT Body Mass Index Plan of Treatment Health Maintenance Due Date Last Done Comments Td # 1945 Zoster Vaccine# (1 of 2) 1993 Osteoporosis Screening 2008 Pneumococcal Vaccine: 65+ 2008 Years (1 of 1 - PPSV23) Fall Risk Assessment # 04/18/2016 04/18/2015 Influenza Vaccine (Season 09/03/2020 Ended) Results Not on filefrom Last 3 Months Advance Directives For more information, please contact: [phone] Date Inactivated Comments Code Status Date Activated 04/18/2015 3:11 PM Full Code 04/17/2015 4:33 PM
--- OUTSIDE RECORDS SUMMARY | 2020-05-07 10:50 | XMS REPORT | Encounter Summary ---
Author Author [facility] Organization [facility] Address Unknown Phone Unavailable Care Team Providers Care Sample Box Maker Name Role Phone Farhat Varghese PCP Encounter Details Care Team Description Date Type Department [facility] [place] [address] [facility] [address] [place] [address] [phone] 04/17/2015 [facility] Visit Social History Date [...]
--- OUTSIDE RECORDS SUMMARY | 2020-05-07 10:51 | XMS REPORT | Encounter Summary ---
Author Author [facility] Organization [facility] Address Unknown Phone Unavailable Care Team Providers Care Complaint Adjuster Name Role Phone Farhat Varghese PCP Encounter Details Care Team Description Date Type Department [facility] [place] [address] [facility] [address] [place] [address] [phone] 07/08/2014 [facility] [...]
--- OUTSIDE RECORDS SUMMARY | 2020-05-07 10:51 | XMS REPORT ---
Author Author [email or web address] [facility] [place] [facility] Address [address] [address] Care Team Providers Care Sales And Marketing Assistant Name Role Phone NEVILLE GIVENS Unavailable NEVILLE GIVENS MD Unavailable Unavailable EDWARD BENAVIDEZ Unavailable Unavailable NEVILLE GIVENS MD Unavailable Unavailable Unavailable Unavailable Unavailable Unavailable Unavailable Unavailable Allergies Normalized Allergy Reported Date of Reaction(s) Care Provider Facility Allergy Type classification allergen Allergy Onset DA (14 Unclassified No Known Drug 03-10-2013 - no information NEVILLE GIVENS , Not Available sources.) Allergies (18892) Medications No Information Problems Active Problems Problem Normalized Date Last Normalized Normalized Provider Fa cility Classification Problem(s) Recorded Problem Problem Sta tus Duration Other upper Acute 03-09-2020 - Episodic Active SWATI COHEN Via respiratory pharyngitis, [facility] infections (2 unspecified Hospital - sources.) [place] () Other Encounter for Episodic Active no name no infor mation aftercare (3 follow-up sources.) examination after completed treatment for malignant neoplasm Other Encounter for Episodic Active NEVILLE GIVENS Not Available screening for screening (46908) suspected mammogram for conditions malignant (not mental neoplasm of disorders or breast infectious Translations: disease) (20 [ OTH ABN AND sources.) INCONCLUSIVE FINDINGS ON DX , OTH SCREEN MAMMO-MALIGN NEOPLASM OF RONAL, INCONCLUSIVE MAMMOGRAM] Fever of Fever, 03-09-2020 - Episodic Active SWATI COHEN Via unknown origin unspecified [facility] (2 sources.) Hospital - [place] () Headache; Headache 03-09-2020 - Episodic Active SWATI COHEN Via including [facility] migraine (2 Hospital - sources.) [place] ([address]) Hemorrhoids (3 Internal Episodic Active no name no infor mation sources.) hemorrhoids without mention of complication Translations: [ EXT HEMORRHOID W/O COMPL] Heart valve Mitral valve Chronic Active no name no info rmation disorders (2 disorders sources.) Translations: [ TRICUSPID VALVE DISEASE] Other ear and Otalgia, right Episodic Active no name no information sense organ ear disorders (4 sources.) Malaise and Other fatigue 03-09-2020 - Episodic Active NEVILLE KRISTINA ACOSTANATHAN , [facility] Via fatigue (2 [facility] sources.) Hospital [facility] ([address]) Nervous system 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 Disorders of Other Episodic Active no name no informa tion teeth and jaw specified (4 sources.) disorders of temporomandibu lar joint NEGATED Palpitations Episodic Active no name no inform ation no information (8 sources.) Melanomas of Personal Episodic Active EDWARD BENAVIDEZ [facility] Via skin (8 history of [facility] sources.) malignant Hospital - melanoma [facility] skin ([address]) Translations: [ PERSONAL HISTORY OF MALIGNANT MELANOMA O] Esophageal Reflux Chronic Active no name no informati on disorders (3 esophagitis sources.) Spondylosis; 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 without disc myelopathy or disorders; radiculopathy, other back cervical problems (4 region sources.) Gastritis and Unspecified Episodic Active no name no inf ormation duodenitis (3 gastritis and sources.) gastroduodenit is, without mention of hemorrhage Past or Other Problems Problem Normalized Date Last Normalized Normalized Provider Fa chris Classification Problem(s) Recorded Problem Problem Sta tus Duration Nonspecific Chest pain, Episodic Completed no name no infor mation chest pain (2 unspecified sources.) Nonmalignant Unspecified no information no information NEVILLE ALEX [facility] Via breast lump in the [facility] conditions (1 left breast, Hospital - source.) unspecified [place] quadrant ([address]) Nonmalignant Unspecified Episodic Completed NEVILLE GIVENS [facility] Via breast lump in the [facility] conditions (4 left breast, Hospital - sources.) unspecified [place] quadrant ([address]) NEGATED Unspecified no information no information no name [facility] Via no lump in the [facility] information (3 right breast, Hospital - sources.) unspecified [place] quadrant ([address]) Procedures No Information Immunizations No Information Results Test Name Value Interpretation Reference Range Date Time Fa ciliotilia (Normalized) (Normalized) (Medline Reference) not yet categorized on 2020-02-18 FLU RESULT Negative (no code) 02-18-2020 PENDING LOCATI ON 09:20040 [facility] (57434) laboratory on 2020-02-18 Bacteria NBS (no code) 02-18-2020 PENDING LOCATI ON identified Cx 09:20-0400 [facility] (45654) Nom (Throat) Coronavirus Ab Negative (no code) 02-18-2020 PENDING LOC ATION Qn (S) 09:200400 [facility] (52632) S. pyogenes Ag Negative (no code) 02-18-2020 PENDING LOC ATION Ql (Unsp spec) 09:200400 [facility] (00297) Vital Signs The data below is from unstructured sourcesNo known vital signs results. Interventions No Information Plan of Treatment The data below is from unstructured sourcesNo plan of care. Goals No Information Social History No Information Functional Status The data below is from unstructured sourcesNo functional status results. Mental Status No Information Encounters Encounter Normalized Encounter Encounter Diagnosis Care Provi jocelyne Organization Date Type NEGATED Patient encounter no information no name no or ganization name 05-27-2018 NEGATED Patient encounter no information no name no or ganization name 05-18-2018 01-01-2018 Patient encounter no information no name no or ganization name 04-01-2017 Patient encounter no information no name no or ganization name 08-05-2016 Patient encounter no information no name no or ganization name 10-20-2015 Patient encounter no information no name no or ganization name 06-09-2015 Patient encounter no information no name no or ganization name 10-18-2014 Patient encounter no information no name no or ganization name 09-13-2014 Patient encounter no information no name no or ganization name 06-14-2014 Patient encounter no information no name no or ganization name - 09-12-2014 10-13-2013 Patient encounter no information no name no or ganization name 03-10-2013 Patient encounter no information no name no or ganization name - 03-10-2013 03-03-2013 Patient encounter no information no name no or ganization name 12-02-2012 Patient encounter no information no name no or ganization name 11-02-2012 Patient encounter no information no name no or ganization name 02-18-2020 Patient encounter no information NEVILLE GIVENS MD ( no [facility] Via [facility] procedure phone) [facility] (no phone) 05-19-2019 Patient encounter no information no name no or ganization name procedure 05-19-2019 Patient encounter no information no name no or ganization name procedure 02-04-2019 Patient encounter no information no name no or ganization name procedure 11-23-2018 Patient encounter no information no name no or ganization name procedure no information Pre-operative no name no organization name examination, unspecified Medical Equipment No Information Payers The data below is from unstructured sources Payer Name Policy Number Subscriber Name Relationship [employer] [facility] Supp [id number] Arian Mock 01 Self / Same As Patient s Medicare [id number] Arian Mock 01 Self / Same As Patient Advance Directives Directive Response Recor ded Date/Time Advance Directives Yes 0 03/10/13 8:10am Health Care Power of High Density Finishing Operator No 03/10/13 8:10am Organ Donor Yes 03/10/13 8:10am Directive Response Recor ded Date Advance Directives Y 06/15 8:10am Health Care Power of High Density Finishing Operator N 03/10/13 8:10am Organ Donor Y 03/10/13 8 :10am Discharge Instructions No hospital discharge instructions. Additional Source Comments This clinical document has been generated using [employer] software that has been certified by the Office of the National Coordinator for Health Information Technology (ONC 15.99.04.3023.Diam.31.00.0.517740) and the National Committee for Stroke Coordinator (NCQA, as an eMeasure certified technology). FOR RECORDS PERTAINING TO PATIENTS WHO ARE OR HAVE BEEN ENROLLED IN A CHEMICAL D EPENDENCY/SUBSTANCE ABUSE PROGRAM, SOME INFORMATION MAY BE OMITTED. This clinica l summary was aggregated from multiple sources. Caution should be exercised in using it in the provision of clinical care. This summary normalizes information from multiple sources, and as a consequence, information in this document may ma terially change the coding, format and clinical context of patient data. In mateo tion, data may be omitted in some cases. CLINICAL DECISIONS SHOULD BE BASED ON T HE PRIMARY CLINICAL RECORDS. [employer] provides no warranty or guara ntee of the accuracy or completeness of information in this document.The followi ng information is based on time limited clinical information
--- OUTSIDE RECORDS SUMMARY | 2020-05-07 10:51 | XMS REPORT | Encounter Summary ---
Author Author [facility] Organization [facility] Address Unknown Phone Unavailable Care Team Providers Care Resident Inspector Name Role Phone Halima Farhat PCP Encounter Details Care Team Description Date [place] [address] [place], [place] [address] 08/08/2014 [facility] Result [facility] [address] [place], [place] [address] Social History Date Tobacco Use Types Packs/Day [...] Procedure Name Priority Date/Time Associated Diag nosis EVENT RECORDER - Routine 08/08/2014 HISTORICAL documented in this encounter Results * Outpatient Heart Monitor - 30 days (08/08/2014) Specimen Narrative Performed At Procedure Category: EP NEXTGEN Procedure: Event Recorder Procedure Summary: 1. The baseline rhyt hm was sinus with a normal heart rate range. 2. Symptoms of "racing hearbeats", "lig htheaded" and "shortness of breath" correlated with s short RP narrow compl ex supraventrcular tachycardia at 220 beats/minute. Procedure Note Interface, Rad Conversion - 05/23/2015 10:38 AM CDT Procedure Category: EP Procedure: Event Recorder Procedure Summary: 1. The baseline rhythm was sinus with a normal heart rate range. 2. Symptoms of "racing hearbeats", "ligh theaded" and "shortness of breath" correlated with s short RP narrow complex supraventrcular tachycardia at 220 beats/minute. Performing Organization Address City/State/Zipcode Ph one Number NEXTGEN documented in this encounter Visit Diagnoses Not on filedocumented in this encounter
--- OUTSIDE RECORDS SUMMARY | 2020-05-07 10:51 | XMS REPORT | Encounter Summary ---
Author Author [facility] Organization [facility] Address Unknown Phone Unavailable Care Team Providers Care Sql Database Programmer Name Role Phone Farhat Varghese PCP Encounter Details Care Team Description Date Type Department Trip Freire MD [address] [place], [place] [id number] [phone] 03/01/2015 [facility] [...] Signs Reading Time Taken Comments Vital Sign 118/68 03/01/2015 11:43 AM CDT Blood Pressure 60 03/01/2015 11:43 AM CDT Pulse - - Temperature - - Respiratory Rate - - Oxygen Saturation - - Inhaled Oxygen Concentration 62.9 kg (138 lb 9.6 oz) 03/01/2015 11:43 AM CDT normal Weight 165.1 cm (5' 5") 03/01/2015 11:43 AM CDT Height 23.06 03/01/2015 11:43 AM CDT Body Mass Index documented in this encounter Progress Notes * Trip Freire MD - 03/01/2015 11:30 AM CDT [address] [address] March 01, 2015 Farhat Varghese M.D. [address] [place], [place] [id number] RE: ARIAN MOCK : 1945 Chart #: [id number] Visit provider: Trip Freire M.D. Visit location: [facility] Dear Dr. Varghese: I had the pleasure of seeing ARIAN MOCK in the office today. She is 69 year s of age and presents with the following chief complaints: Supraventricular nel tricular tachycardia. HPI: She presents for cardiac electrophysiology follow-up of symptomatic paroxysmal s upraventricular tachycardia. With metoprolol therapy she reports fatigue and mu scle cramps. She has had five to six breakthrough arrhythmia episodes despite m etoprolol use, even at a higher dose of 50 mg daily. She is ready to proceed wi th ablation therapy, which we discussed in detail today. She denies symptoms of chest pain, syncope, presyncope, dyspnea or lower extremi ty edema. After an arrhythmia episode she feels "wiped out" for many hours due to fatigue related to the event. Problem List: Dysrhythmia -PSVT 08/08/2014 Event Recorder 1. The baseline rhythm was sinus with a normal heart r ate range. 2. Symptoms of "racing heartbeats", "lightheaded" and "shortness of breath" correlated with s short RP narrow complex supraventricular tachycardia a t 220 beats/minute. Tobacco abuse, former Past Medical History: Meniere's disease GERD Past Surgical History: Cholecystectomy Vaginal Hysterectomy Section 1994 Cervical diskectomy 1998 Final Medications: Triamterene/hydrochlorothiazide 37.5 Mg-25 Mg take 1 tablet by oral route every day Pantoprazole Sodium 40 Mg take 1 tablet (40MG) by oral route every day Metoprolol Succinate 50 Mg take 1 tablet by oral route every day Estradiol 0.5 Mg take 1 tablet (0.5MG) by oral route every day Claritin 10 Mg take 1 tablet (10MG) by oral route every day Centrum Silver Ultra Women's take one tablet daily Allergies/Intolerances: No known allergies Family History: Sister Diagnosed with coronary artery disease, 2 major attacks Social History: Marital Status: Children: 3 Occupation: Retired Advance Directives: The patient has a DNR request. The patient has a living will Diet: Regular Exercise: Active Lifestyle Tobacco: Former user of cigarettes 1.50 pack(s) per day for 30.00 year(s). Quit in 1998 Alcohol: Currently drinks 2 glasses of wine daily Caffeine: Caffeine use: <1 cup of coffee ROS: 12-point review of systems is negative with the following exceptions: Constitutional: Fatigue, Cough Pulmonary: Daytime drowsiness, Wake up unrefreshed /GLOBAL EXPANSION SALES DIRECTOR: Postmenopausal Musculoskeletal/Dermatology: Myalgias Endocrine/Psych: Feeling depressed Physical Exam: Vital Signs The patient is 5ft 5in tall, and weighs 138.6lbs. The BMI is 23.10. Blood pressure taken in the left arm is 118/68 mmHg in the sitting position. The pulse is 60. The rhythm is regular. Const The patient is a well-developed, well-nourished female. HEENT The pupils are equal and round. The patient's neck veins are not visible. There is no thyromegaly. Pulm Lungs are clear to auscultation. Cardiac Regular rate and rhythm. Normal S1 and S2. No murmur, rub, or gallop pre sent. Abd The patient has no abdominal tenderness to palpation. The abdominal aorta i s not palpable. Vasc Distal pulses 2+ throughout with no carotid bruits noted. EXT The extremities are warm to touch. There is no edema noted. Skin The skin is warm and dry. M/S The patient's gait is normal. No joint or spine deformities are noted. Neuro/Psych The patient is alert and oriented to time, person and place. The pa tient's mood is normal. EKG: Rhythm: Sinus Rate: 60 AV Conduction: Normal QRS [place] and Voltage: normal Intervals: ME: 155 ms QRS: 88 ms QT: 418 ms QTc: 408 ms Impression: Arian Mock is a 69-year-old woman who presents for cardiac electrophysiolog y follow-up. Plan: Symptomatic paroxysmal supraventricular tachycardia. 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 I discussed risks, benefits and alternatives to ablation therapy with her in detail today. She is interested in proceeding. We will use [employer]Site three-di mensional mapping for the procedure. Hold metoprolol per routine prior to ablat ion. Testing ordered: Description Interval EKG Today Thank you for allowing me to participate in ARIAN MOCK's care. If I can be of any further assistance, please do not hesitate to contact me. Sincerely, Trip Freire M.D. MJG/jar , 12:10 p.m. , 1:26 p.m. F: 03/01/2015 documented in this encounter Plan of Treatment Not on filedocumented as of this encounter Visit Diagnoses Not on filedocumented in this encounter
--- OUTSIDE RECORDS SUMMARY | 2020-05-07 10:51 | XMS REPORT | Encounter Summary ---
Author Author Organization Address Unknown Phone Unavailable Care Team Providers Care Clipman Name Role Phone Farhat Varghese PCP Encounter Details Care Team Description [place] [address] [address] [id number] [phone] 08/29/2014 [facility] [...] Signs Reading Time Taken Comments Vital Sign 120/70 08/29/2014 12:49 PM CDT Blood Pressure 68 08/29/2014 12:49 PM CDT Pulse - - Temperature - - Respiratory Rate - - Oxygen Saturation - - Inhaled Oxygen Concentration 65.8 kg (145 lb) 08/29/2014 12:49 PM CDT normal Weight 165.1 cm (5' 5") 08/29/2014 12:49 PM CDT Height 24.13 08/29/2014 12:49 PM CDT Body Mass Index documented in this encounter Progress Notes * Trip Freire MD - 08/29/2014 1:30 PM CDT [id number] [place] [address] August 29, 2014 Farhat Varghese MD [address] [place] [address] RE: ARIAN MOCK : 1945 Chart #: [id number] Visit provider: Trip Freire M.D. Visit location: [facility] Dear Dr. Varghese: I had the pleasure of seeing ARIAN MOCK in the office today. She is 69 year s of age and presents with the following chief complaints: follow up on test re sulamelia. HPI: Ms. Mock presents for cardiac electrophysiology follow up of supraventricular tachycardia. After our initial consultation visit, we arranged for her to have an event recorder. She recorded episodes of a short RP supraventricular tachyc ardia with rates up to 230 beats per minute. These episodes were typical of her usual supraventricular tachycardia spells. We initiated daily medical therapy with metoprolol succinate 25 mg daily, which she is tolerating well. Fortunatel y, she has had no recurrent episodes on medical therapy. She also denies sympto ms of chest pain, syncope, presyncope, dyspnea or lower extremity edema. Problem List: Arrhythmia Dysrhythmia -PSVT Tobacco Abuse Former Past Medical History: GERD Past Surgical History: Cholecystectomy Vaginal Hysterectomy Section 1994 Cervical discectomy 1998 Final Medications: Metoprolol Succinate 25 Mg take 1 tablet (25MG) by oral route every day Estradiol 0.5 Mg take 1 tablet (0.5MG) by oral route every day Claritin 10 Mg take 1 tablet (10MG) by oral route every day Centrum Silver take one tablet daily Pantoprazole Sodium 40 Mg take 1 tablet (40MG) by oral route every day Allergies/Intolerances: No Known Allergies Family History: Sister Diagnosed with CAD,2 major attacks Social History: Marital Status: Children: 3 Occupation: Retired Advance Directives: The patient has a living will Diet: Regular Exercise: Active Lifestyle Tobacco: Former user of Cigarettes 1.50 pack(s) per day for 30.00 year(s). Quit in 1998 Alcohol: Currently drinks 2 glasses of wine daily Caffeine: Caffeine use: 1 cup of coffee ROS: 12-point review of systems is negative with the following exceptions: Pulmonary: Snore Physical Exam: Vital Signs The patient is 5ft 5in tall, and weighs 145lbs. The BMI is 24.10. B lood pressure taken in the left arm is 120/70 mmHg in the sitting position. The pulse is 68. The rhythm is regular. Const The patient [...] The abdominal aorta i s not palpable. EXT The extremities are warm to touch. There is no edema noted. M/S The patient's gait is normal. No joint or spine deformities are noted. Vasc Distal pulses 2+ throughout with no carotid bruits noted. Neuro/Psych The patient is alert and oriented to time, person and place. The pa tient's mood is normal. Impression and Plan: Arian Mock is a 69-year-old woman who presents for cardiac electrophysiolog y followup. Symptomatic paroxysmal supraventricular tachycardia. The short RP narrow comple x tachycardia is consistent with either typical atrioventricular herman reentrant tachycardia versus orthodromic reciprocating tachycardia via a concealed access ory pathway. I discussed treatment options that include continuation of beta-bl ocker therapy versus proceeding with an invasive electrophysiology study with ra diofrequency ablation for her arrhythmia. She is happy with her arrhythmia cont rol on metoprolol, which we will continue at this point. If her symptoms worsen , she will consider proceeding with ablation. I gave her handouts of reading chevy jackson about supraventricular tachycardia, electrophysiology study and ablation therapy. Follow up: Trip Freire M.D. 1 Year Thank you for allowing me to participate in ARIAN MOCK's care. If I can be of any further assistance, please do not hesitate to contact me. Sincerely, Trip BLAKE/jose F: 09/09/2014 ING ENGINEER documented in this encounter Plan of Treatment Not on filedocumented as of this encounter Visit Diagnoses Not on filedocumented in this encounter
--- OUTSIDE RECORDS SUMMARY | 2020-05-07 10:51 | XMS REPORT | Encounter Summary ---
Author Author [facility] Organization [facility] Address Unknown Phone Unavailable Care Team Providers Care Quality Director Name Role Phone Farhat Varghese PCP Encounter Details Care Team Description [place] [address] [facility] [address] [place] [address] [phone] 08/26/2014 [facility] [...]
--- OUTSIDE RECORDS SUMMARY | 2020-05-07 10:51 | XMS REPORT | Encounter Summary ---
Author Author [facility] Address Unknown Phone Unavailable Care Team Providers Care Reading Coach Name Role Phone Farhat Varghese PCP Encounter Details Care Team Description Date [place] [address] [facility] [address] [place] [address] [phone] 07/01/2014 [facility] [...]
--- OUTSIDE RECORDS SUMMARY | 2020-05-07 10:51 | XMS REPORT | Encounter Summary ---
Author Author [facility] Organization [facility] Address Unknown Phone Unavailable Care Team Providers Care Wood Grinder Name Role Phone Farhat Varghese PCP Encounter Details Care Team Description Date [place] [address] [facility] [address] [place] [address] [phone] 02/27/2015 [facility] [...]
--- OUTSIDE RECORDS SUMMARY | 2020-05-07 10:51 | XMS REPORT | Continuity of Care Document ---
Author Organization Unknown Address Unknown Phone Unavailable Allergies Active Description Code Type Severity Reaction Onset Reported/Identified Relationship to Patient Clinical Status Yes No Known Drug Allergies [id number] Drug Allergy Unknown N/A 03/10/2013 Medications There is no data. Problems Date Dx Coded Attending Type Code Diagnosis Diagnosed By 03/10/2013 THIAGO MCWILLIAMS MD Ot 455.0 INT HEMORRHOID W/O COMPL 03/10/2013 THIAGO MCWILLIAMS MD Ot 455.3 EXT HEMORRHOID W/O COMPL 03/10/2013 THIAGO MCWILLIAMS MD Ot 530.11 REFLUX ESOPHAGITIS 03/10/2013 THIAGO MCWILLIAMS MD Ot 535.50 UNSP GASTRITIS GASTRODUODENITIS W/O ME 08/26/2013 YEIMI PHILLIPS DO V04.81 FLU SHOT 09/12/2014 NEVILLE GIVENS MD Ot 785.1 PALPITATIONS 10/20/2014 NEVILLE GIVENS MD Ot V76.1 2 11/09/2014 NEVILLE GIVENS MD Ot V76.1 2 06/29/2015 AUSTIN CORDERO NUCLEAR CRITICALITY SAFETY ENGINEER Ot V10.8 2 07/03/2015 AUSTIN CORDERO NUCLEAR CRITICALITY SAFETY ENGINEER Ot V10.8 2 07/06/2015 AUSTIN CORDERO NUCLEAR CRITICALITY SAFETY ENGINEER Ot V10.8 2 11/09/2015 NEVILLE GIVENS MD Ot Z12.3 1 08/07/2016 EDWRAD BENAVIDEZ Ot Z08 ENCNTR FOR FOLLOW-UP EXAM AFTER TRTMT FO 08/07/2016 EDWARD BENAVIDEZP Ot Z85.820 PERSONAL HISTORY OF MALIGNANT MELANOMA O 08/07/2016 EDWARD BENAVIDEZ FITNESS AND WELLNESS MANAGER Ot Z08 ENCNTR FOR FOLLOW-UP EXAM AFTER TRTMT FO 08/07/2016 EDWARD BENAVIDEZ Ot Z85.820 PERSONAL HISTORY OF MALIGNANT MELANOMA O 08/28/2016 EDWARD BENAVIDEZ Ot Z08 ENCNTR FOR FOLLOW-UP EXAM AFTER TRTMT FO 08/28/2016 EDWARD BENAVIDEZ FITNESS AND WELLNESS MANAGER Ot Z85.820 PERSONAL HISTORY OF MALIGNANT MELANOMA O 03/28/2017 NEVILLE GIVENS MD Ot Z12.3 1 ENCNTR SCREEN MAMMOGRAM FOR MALIGNANT NE 04/22/2017 NEVILLE GIVENS MD Ot Z12.3 1 ENCNTR SCREEN MAMMOGRAM FOR MALIGNANT NE 12/31/2017 Ot V76.12 OTH SCREEN MAMMO- MALIGN NEOPLASM OF RONAL 12/31/2017 Ot 397.0 TRIC USPID VALVE DISEASE 12/31/2017 Ot 424.0 MITR AL VALVE DISORDER 12/31/2017 Ot 785.1 PALP ITATIONS 12/31/[address] PAIN NOS 12/31/2017 THIAGO MCWILLIAMS MD Ot V72.84 EXAM PRE-OPERATIVE NOS 12/31/2017 FRANK CABRAL APRN Ot V76.12 OTH SCREEN MAMMO-MALIGN NEOPLASM OF RONAL 12/31/2017 Ot 785.1 PALP ITATIONS 12/31/2017 NEVILLE GIVENS MD Ot V76.1 2 OTH SCREEN MAMMO-MALIGN NEOPLASM OF RONAL 12/31/2017 AUSTIN CORDERO NUCLEAR CRITICALITY SAFETY ENGINEER Ot V10.8 2 HX-MALIG SKIN MELANOMA 12/31/2017 NEVILLE GIVENS MD Ot Z12.3 1 ENCNTR SCREEN MAMMOGRAM FOR MALIGNANT NE 12/31/2017 EDWARD BENAVIDEZ FITNESS AND WELLNESS MANAGER Ot Z08 ENCNTR FOR FOLLOW-UP EXAM AFTER TRTMT FO 12/31/2017 EDWARD BENAVIDEZ FITNESS AND WELLNESS MANAGER Ot Z85.820 PERSONAL HISTORY OF MALIGNANT MELANOMA O 12/31/2017 NEVILLE GIVENS MD Ot Z12.3 1 ENCNTR SCREEN MAMMOGRAM FOR MALIGNANT NE 01/01/2018 Ot V76.12 OTH SCREEN MAMMO- MALIGN NEOPLASM OF RONAL 01/01/2018 Ot 397.0 TRIC USPID VALVE DISEASE 01/01/2018 Ot 424.0 MITR AL VALVE DISORDER 01/01/2018 Ot 785.1 PALP ITATIONS 01/01/[address] PAIN NOS 01/01/2018 THIAGO MCWILLIAMS MD Ot V72.84 EXAM PRE-OPERATIVE NOS 01/01/2018 FRANK CABRAL APRN Ot V76.12 OTH SCREEN MAMMO-MALIGN NEOPLASM OF RONAL 01/01/2018 Ot 785.1 PALP ITATIONS 01/01/2018 TOSHA MARTE, NEVILLE Ball Ot V76.1 2 OTH SCREEN MAMMO-MALIGN NEOPLASM OF RONAL 01/01/2018 AUSTIN CORDERO APRN Ot V10.8 2 HX-MALIG SKIN MELANOMA 01/01/2018 NEVILLE GIVENS MD Ot Z12.3 1 ENCNTR SCREEN MAMMOGRAM FOR MALIGNANT NE 01/01/2018 EDWARD BENAVIDEZ FITNESS AND WELLNESS MANAGER Ot Z08 ENCNTR FOR FOLLOW-UP EXAM AFTER TRTMT FO 01/01/2018 EDWARD BENAVIDEZ FITNESS AND WELLNESS MANAGER Ot Z85.820 PERSONAL HISTORY OF MALIGNANT MELANOMA O 01/01/2018 NEVILLE GIVENS MD Ot Z12.3 1 ENCNTR SCREEN MAMMOGRAM FOR MALIGNANT NE 01/05/2018 FLORA, MORRIS J AUTOMOBILE PARTS ASSEMBLER Ot H92.01 OTALGIA, RIGHT EAR 01/05/2018 FLORA, MORRIS J AUTOMOBILE PARTS ASSEMBLER Ot M26.69 OTHER SPECIFIED DISORDERS OF TEMPOROMAND 01/05/2018 FLORA, MORRIS J AUTOMOBILE PARTS ASSEMBLER Ot M47.812 SPONDYLOSIS W/O MYELOPATHY OR RADICULOPA 01/05/2018 FLORA, MORRIS J AUTOMOBILE PARTS ASSEMBLER Ot Q04.8 OTHER SPECIFIED CONGENITAL MALFORMATIONS 01/21/2018 FLORA, MORRIS J AUTOMOBILE PARTS ASSEMBLER Ot H92.01 OTALGIA, RIGHT EAR 01/21/2018 FLORA, MORRIS J AUTOMOBILE PARTS ASSEMBLER Ot M26.69 OTHER SPECIFIED DISORDERS OF TEMPOROMAND 01/21/2018 FLORA, MORRIS J AUTOMOBILE PARTS ASSEMBLER Ot M47.812 SPONDYLOSIS W/O MYELOPATHY OR RADICULOPA 01/21/2018 FLORA, MORRIS J AUTOMOBILE PARTS ASSEMBLER Ot Q04.8 OTHER SPECIFIED CONGENITAL MALFORMATIONS 01/28/2018 FLORA, MORRIS J AUTOMOBILE PARTS ASSEMBLER Ot H92.01 OTALGIA, RIGHT EAR 01/28/2018 FLORA, MORRIS J AUTOMOBILE PARTS ASSEMBLER Ot M26.69 OTHER SPECIFIED DISORDERS OF TEMPOROMAND 01/28/2018 FLORA, MORRIS J AUTOMOBILE PARTS ASSEMBLER Ot M47.812 SPONDYLOSIS W/O MYELOPATHY OR RADICULOPA 01/28/2018 FLORA, MORRIS J AUTOMOBILE PARTS ASSEMBLER Ot Q04.8 OTHER SPECIFIED CONGENITAL MALFORMATIONS 05/19/2018 NEVILLE GIVENS MD Ot Z12.3 1 ENCNTR SCREEN MAMMOGRAM FOR MALIGNANT NE 05/27/2018 OJ MARTE, THIAGO Ot V72.84 EXAM PRE-OPERATIVE NOS 05/27/2018 FRANK CABRAL APRN Ot V76.12 OTH SCREEN MAMMO-MALIGN NEOPLASM OF RONAL 05/27/2018 Ot 785.1 PALP ITATIONS 05/27/2018 NEVILLE GIVENS MD Ot V76.1 2 OTH SCREEN MAMMO-MALIGN NEOPLASM OF RONAL 05/27/2018 AUSTIN CORDERO APRN Ot V10.8 2 HX-MALIG SKIN MELANOMA 05/27/2018 NEVILLE GIVENS MD Ot Z12.3 1 ENCNTR SCREEN MAMMOGRAM FOR MALIGNANT NE 05/27/2018 EDWARD BENAVIDEZ Ot Z08 ENCNTR FOR FOLLOW-UP EXAM AFTER TRTMT FO 05/27/2018 EDWARD BENAVIDEZ Ot Z85.820 PERSONAL HISTORY OF MALIGNANT MELANOMA O 05/27/2018 NEVILLE GIVENS MD Ot Z12.3 1 ENCNTR SCREEN MAMMOGRAM FOR MALIGNANT NE 05/27/2018 FLORA, MORRIS J AUTOMOBILE PARTS ASSEMBLER Ot H92.01 OTALGIA, RIGHT EAR 05/27/2018 FLORA, MORRIS J AUTOMOBILE PARTS ASSEMBLER Ot M26.69 OTHER SPECIFIED DISORDERS OF TEMPOROMAND 05/27/2018 FLORA, MORRIS J AUTOMOBILE PARTS ASSEMBLER Ot M47.812 SPONDYLOSIS W/O MYELOPATHY OR RADICULOPA 05/27/2018 FLORA, MORRIS J AUTOMOBILE PARTS ASSEMBLER Ot Q04.8 OTHER SPECIFIED CONGENITAL MALFORMATIONS 05/27/2018 NEVILLE GIVENS MD Ot Z12.3 1 ENCNTR SCREEN MAMMOGRAM FOR MALIGNANT NE 05/27/2018 NEVILLE GIVENS MD Ot R92.8 OTH ABN AND INCONCLUSIVE FINDINGS ON DX 05/28/2018 NEVILLE GIVENS MD Ot N63.1 0 UNSPECIFIED LUMP IN THE RIGHT BREAST, UN 11/24/2018 NEVILLE GIVENS MD Ot R92.2 INCONCLUSIVE MAMMOGRAM 12/09/2018 NEVILLE GIVENS MD Ot R92.2 INCONCLUSIVE MAMMOGRAM 12/16/2018 NEVILLE GIVENS MD Ot R92.2 INCONCLUSIVE MAMMOGRAM 03/01/2019 EDWARD BENAVIDEZ Ot Z85.820 PERSONAL HISTORY OF MALIGNANT MELANOMA O 03/04/2019 EDWARD BENAVIDEZ Ot Z85.820 PERSONAL HISTORY OF MALIGNANT MELANOMA O 05/21/2019 NEVILLE GIVENS MD Ot N63.2 0 UNSPECIFIED LUMP IN THE LEFT BREAST, UNS 05/21/2019 NEVILLE GIVENS MD Ot Z12.3 1 ENCNTR SCREEN MAMMOGRAM FOR MALIGNANT NE 06/03/2019 NEVILLE GIVENS MD, Ot N63.2 0 UNSPECIFIED LUMP IN THE LEFT BREAST, UNS 06/23/2019 NEVILLE GIVENS MD, Ot N63.2 0 UNSPECIFIED LUMP IN THE LEFT BREAST, UNS 06/24/2019 NEVILLE GIVENS MD, Ot N63.2 0 UNSPECIFIED LUMP IN THE LEFT BREAST, UNS 02/21/2020 NEVILLE GIVENS MD Ot J02.9 ACUTE PHARYNGITIS, UNSPECIFIED 02/21/2020 NEVILLE GIVENS MD Ot R50.9 FEVER, UNSPECIFIED 02/21/2020 NEVILLE GIVENS MD Ot R51 HEADACHE 02/21/2020 NEVILLE GIVENS MD Ot R53.8 3 OTHER FATIGUE 03/09/2020 NEVILLE GIVENS MD Ot J02.9 ACUTE PHARYNGITIS, UNSPECIFIED 03/09/2020 NEVILLE GIVENS MD Ot R50.9 FEVER, UNSPECIFIED 03/09/2020 NEVILLE GIVENS MD Ot R51 HEADACHE 03/09/2020 NEVILLE GIVENS MD Ot R53.8 3 OTHER FATIGUE Procedures Code Description Performed By Per formed On G0008 FLU ADMINISTRATION (MEDICARE ONLY) 08/26/2013 Results Test Result Range [id number] - 01/01/18 08:24 Serum or plasma urea nitrogen measurement (mass/volume ) 19 mg/dL 7-18 Serum or plasma creatinine measurement (mass/volume) 0.82 mg/dL 0.60-1.30 Serum or plasma urea nitrogen/creatinine mass ratio 23 NRG Serum or plasma creatinine measurement w ith calculation of estimated glomerular filtration rate > NRG Streptococcus pyogenes antigen detection - 02/18/20 13:20 Streptococcus pyogenes antigen detection NEGATIVE NEGATIVE Influenza virus A and B antigen detectio n - 02/18/20 13:20 FLU RESULT NEGATIVE FOR INFLUENZA A AND B ANTIGENS BY IA NRG 2019 Coronavirus SARS-CoV-2 SO - 0 13:20 Coronavirus Ab [Units/volume] in Serum Negative Negative Bacterial throat culture - 02/18/20 13:2 0 Bacterial throat culture NBS NRG Encounters ACCT No. Visit Date/Time Discharge Status Pt. Type Provider Facility Loc./Unit Complaint [id number] 08/26/2013 13:14:00 08/26/2013 23:59: 59 CLS Outpatient ALAN YEIMI WILEY [id number] 02/18/2020 13:40:00 020 23:59:59 CLS Outpatient NEVILLE GIVENS MD [facility] LABNPT FEVER FATIGUE SORE THRO AT [place]OW[place] [id number] 05/19/2019 09:30:00 019 23:59:59 CLS Outpatient NEVILLE GIVENS MD [facility] RAD SCREENING [id number] 02/04/2019 08:51:00 019 23:59:59 CLS Outpatient EDWARD BENAVIDEZ [facility] RAD HISTORY OF MELANOMA [id number] 11/23/2018 12:16:00 019 23:59:59 CLS Outpatient NEVILLE GIVENS MD [facility] RAD ABNORMAL MAMMO [id number] 05/27/2018 07:42:00 018 23:59:59 CLS Outpatient NEVILLE GIVENS MD [facility] RAD ABN MAMMO [id number] 05/18/2018 08:56:00 018 23:59:59 CLS Outpatient NEVILLE GIVENS MD [facility] RAD SCREENING [id number] 01/01/2018 08:13:00 018 23:59:59 CLS Outpatient MORRIS HINES AUTOMOBILE PARTS ASSEMBLER [facility] RAD RT NECK PAIN,RT JAW PAIN [id number] 04/01/2017 10:01:00 017 23:59:59 CLS Outpatient NEVILLE GIVENS MD [facility] RAD SCREENING [id number] 08/05/2016 07:53:00 016 23:59:59 CLS Outpatient EDWARD BENAVIDEZ [facility] RAD HX OF MELANOMA [id number] 10/20/2015 10:20:00 015 23:59:59 CLS Outpatient NEVILLE GIVENS MD [facility] RAD ROUTINE MAMMOGRAM JELANI DE LA ROSA [id number] 06/09/2015 08:27:00 015 23:59:59 CLS Outpatient AUSTIN CORDERO APRN [facility] RAD HISTORY OF MELANOMA [id number] 10/18/2014 09:05:00 014 23:59:59 CLS Outpatient NEVILLE GIVENS MD [facility] RAD SCREENING [id number] 06/14/2014 10:01:00 014 00:01:00 DIS Outpatient NEVILLE GIVENS MD [facility] CARD PALP [id number] 10/13/2013 08:59:00 013 23:59:59 CLS Outpatient FRANK CABRAL APRN [facility] RAD SCREENING [id number] 03/10/2013 07:54:00 013 12:00:00 DIS Outpatient THIAGO MCWILLIAMS MD [facility] SDC SCREENING/REFLUX [id number] 03/03/2013 07:21:00 013 23:59:59 CLS Outpatient THIAGO MCWILLIAMS MD [facility] PREOP SCREENING/REFLUX [id number] 09/13/2014 10:00:00 Document Registration [id number] 12/02/2012 12:37:00 Document Registration [id number] 11/02/2012 14:15:00 Document Registration [email or web address] 06/10/2015 03:37:11 ACT Document Registration
--- OUTSIDE RECORDS SUMMARY | 2020-05-07 10:51 | XMS REPORT | Encounter Summary ---
Author Author [facility] Organization [facility] Address Unknown Phone Unavailable Care Team Providers Care Journalism Intern Name Role Phone Farhat Varghese PCP Encounter Details Care Team Description Date Type Department [place], [place] [address] [facility] [address] [place] [address] [phone] 01/19/2015 [facility] [...]
--- OUTSIDE RECORDS SUMMARY | 2020-05-07 10:51 | XMS REPORT | Encounter Summary ---
Author Author [facility] Organization [facility] Address Unknown Phone Unavailable Care Team Providers Care Jde Developer Name Role Phone Farhat Varghese PCP Encounter Details Care Team Description Date Type Department [facility] Torres Vargas MD 08/08/2014 [facility] - [facility] CLINI C Visit Social History Date Tobacco Use Types Packs/Day Years Used Never Assessed Sex Assigned at Date Recorded Not on file Industry Job Start Date Occupation Not on file Not on file Not on file Travel End Travel History Travel Start No recent travel history available. documented as of this encounter Progress Notes * [facility] ProviderTorres MD - 08/08/2014 4:00 [place] [address] 09/12/2014 Farhat Varghese MD [address] [place] [address] Re: ARIAN MOCK : 1945 Chart#: [id number] Dear Dr. Varghese: This is a followup note regarding ARIAN MOCK. She has completed her cardia c testing and I am writing to share the results with you. She had the following tests: Event recorder - non-loopin. The baseline rhythm was sinus with a normal hea rt rate range. 2. Symptoms of "racing hearbeats", "lightheaded" and "shortness of breath" corre lated with s short RP narrow complex supraventrcular tachycardia at 220 beats/mi nute. TSH: 06/06/14 TSH 1.86 Based on the above, I am recommending the following: - no new recommendations Follow up is requested as planned. These test results along with my recommendations have been communicated to HAYLEY MOCK. I hope this information is useful to you. If you should have any q uestions or concerns, please do not hesitate to contact me. Sincerely, Trip Freire M.D. cc: Farhat Varghese MD [address] [place] [id number] documented in this encounter Plan of Treatment Not on filedocumented as of this encounter Visit Diagnoses Not on filedocumented in this encounter
--- OUTSIDE RECORDS SUMMARY | 2020-05-07 10:51 | XMS REPORT | Encounter Summary ---
Author Author [facility] Organization [facility] Address Unknown Phone Unavailable Care Team Providers Care Chief Medical Technologist Name Role Phone Farhat Varghese PCP Encounter Details Care Team Description Date Type Department Trip Freire MD [address] [place] [address] [phone] 03/09/2015 [facility] Visit Social History Date Tobacco Use Types Packs/Day Years Used Never Assessed Sex Assigned at Date Recorded Not on file Industry Job Start Date Occupation Not on file Not on file Not on file Travel End Travel History Travel Start No recent travel history available. documented as of this encounter Progress Notes * Trip Freire MD - 03/09/2015 3:56 PM CDT [facility] Office [address] [place] [address] 03/15/2015 Farhat Varghese MD [facility] [place] [address] Re: ARIAN MOCK : 1945 Chart#: [id number] Dear Dr. Varghese: This is a followup note regarding ARIAN MOCK. She has completed her cardia c testing and I am writing to share the results with you. She had the following tests: Free T4: 03/06/2015: Free T4 0.85 0.61-1.12 ng/dL TSH: 03/06/2015: TSH 2.29 0.49-4.67 ulU /ml Based on the above, I am recommending the following: - Normal result. No new recommendations. These test results along with my recommendations have been communicated to HAYLEY MOCK. I hope this information is useful to you. If you should have any q uestions or concerns, please do not hesitate to contact me. Sincerely, Trip Freire M.D. documented in this encounter Plan of Treatment Not on filedocumented as of this encounter Visit Diagnoses Not on filedocumented in this encounter
--- OUTSIDE RECORDS SUMMARY | 2020-05-07 10:51 | XMS REPORT | Encounter Summary ---
Author Author [facility] Organization [facility] Address Unknown Phone Unavailable Care Team Providers Care Golf Club Maker Name Role Phone Farhat Varghese PCP Encounter Details Care Team Description Date Type Department [facility] Provider, MD Torres 06/14/2014 [facility] HIST[facility]IC CLINI C Result Social History Date Tobacco Use Types Packs/Day [...] Procedure Name Priority Date/Time Associated Diag nosis HOLTER - HISTORICAL Routine 06/14/2014 documented in this encounter Results * Outpatient Heart Monitor - 24 hrs (06/14/2014) Specimen Narrative Performed At Procedure Category: Holter NEXTGEN Procedure: 24 Hour Holter Procedure Summary: Ave HR 68bpm. Max HR 91bpm. Minimum HR 53bpm. Venttricular ectopy-1 beat. Supraventricular ectopy- 74 beats-isolated PAC's-74. Procedure Note Interface, Rad Conversion - 05/23/2015 10:47 AM CDT Procedure Category: Holter Procedure: 24 Hour Holter Procedure Summary: Ave HR 68bpm. Max HR 91bpm. Minimum HR 53bpm. Venttricular ectopy-1 beat. Supraventricular ectopy- 74 beats-isolated PAC's-74. Performing Organization Address City/State/Zipcode Ph one Number NEXTGEN documented in this encounter Visit Diagnoses Not on filedocumented in this encounter
--- OUTSIDE RECORDS SUMMARY | 2020-05-07 10:51 | XMS REPORT | Encounter Summary ---
Author Author [facility] Organization [facility] Address Unknown Phone Unavailable Care Team Providers Care Machine Tool Dresser Name Role Phone Farhat Varghese PCP Encounter Details Care Team Description Date Type Department [place] [address] [facility] [address] [place] [address] [phone] 01/30/2015 [facility] [...]
--- OUTSIDE RECORDS SUMMARY | 2020-05-07 10:51 | XMS REPORT | Encounter Summary ---
Author Author [facility] Organization [facility] Address Unknown Phone Unavailable Care Team Providers Care Molasses Coloring Operator Name Role Phone Farhat Varghese PCP Encounter Details Care Team Description Date Type Department [place] [address] [facility] [address] [place] [address] [phone] 07/21/2014 [facility] [...]
--- OUTSIDE RECORDS SUMMARY | 2020-05-07 10:51 | XMS REPORT | Encounter Summary ---
Author Author [facility] Organization [facility] Address Unknown Phone Unavailable Care Team Providers Care Textile Colorist Dyer Name Role Phone Farhat Varghese PCP Encounter Details Care Team Description Date Type Department [place] [id number] [place] [id number] [phone] 07/01/2014 [facility] [...] Signs Reading Time Taken Comments Vital Sign 130/90 07/01/2014 9:57 AM CDT Blood Pressure 63 07/01/2014 9:57 AM CDT Pulse - - Temperature - - Respiratory Rate - - Oxygen Saturation - - Inhaled Oxygen Concentration 64.6 kg (142 lb 6.4 oz) 07/01/2014 9:57 AM CDT normal Weight 165.1 cm (5' 5") 07/01/2014 9:57 AM CDT Height 23.7 07/01/2014 9:57 AM CDT Body Mass Index documented in this encounter Progress Notes * Trip Freire MD - 07/01/2014 10:00 AM CDT [address] [address] Imaging Orders 07/01/2014 10:00 AM RE: RAIAN MOCK : 1945 Chart: [id number] Work Phone: Primary Insurance: Orders this visit: Test Type Test Desc Test Reason Test Location Interval EP Event recorder - non-looping palpitations SLS First Available Diagnosis: 4270 SVT 7851 Palpitations Sincerely, Trip Freire M.D. 07/01/2014 11:39 AM * Trip Freire MD - 07/01/2014 10:00 AM CDT [facility] Office [address] [place] [address] July 01, 2014 Farhat Varghese MD [address] [place] [address] RE: ARIAN MOCK : 1945 Chart #: [id number] Visit provider: Trip Freire M.D. Visit location: [facility] Dear Dr. Varghese: I had the pleasure of seeing ARIAN MOCK in the office today. She is 69 year s of age and presents with the following chief complaints: palpitations/arrhyth mias. HPI: Ms. Mock presents for initial cardiac electrophysiology evaluation as a new p atient due to symptoms of palpitations and tachycardia that have occurred for th e past several years. She was previously admitted in February or March 2011 with sync ope at [facility] in [place], [place]. She underwent a cardiovascular evaluat ion at that time. I do not have the results available but she states that her he art was felt to be normal. They felt that her heart was normal. She was felt to be dehydrated at that time. Subsequently she has been to the emergency departmen t on two occasions with episodes of palpitations and tachycardia but no signific ant arrhythmias have been recorded. With episodes, she has recorded her heart ra te up to the 190 beat per minute range at home. The episodes last up to 30 minut es in duration and cause associated anxiety and significant fatigue and exhausti on afterward. She denies subsequent syncopal episodes but does experience upper chest and neck discomfort during episodes. She has never taken medications for t his problem. She is somewhat fearful of taking daily medication as her blood pre ssure usually runs on the low side. More recently she underwent cardiovascular e valuation with a 48-hour Holter monitor. Occasional supraventricular and ventric ular ectopy were recorded. In addition, a 6-beat run of supraventricular tachyca rdia consistent with atrial tachycardia was noted. She did not experience one of her usual "spells" during this monitoring period, however. She underwent a rest ing and exercise echocardiogram test on December 02, 2012, at [facility] in [place], [place]. Those studies were felt to be normal. Her left ventricular s ystolic function was normal with an ejection fraction of 60% with no significant valvular abnormalities. The atrial size was normal. The pulmonary artery pressu re was 30 mmHg. She feels that her arrhythmia burden has increased lately. She e xperienced four episodes last month. She blames her lifestyle with nicotine gum supplementation, as well as occasional alcohol use as a potential culprit. I do not have laboratory tests available. She will inquire with Dr. Varghese to see if her thyroid function has been checked. Her resting electrocardiogram is normal. Problem List: Tobacco Abuse Former Past Surgical History: Gallbladder removal Vaginal Hysterectomy Section 1994 Cervical diskectomy 1998 Final Medications: Claritin 10 Mg take 1 tablet (10MG) by oral route every day Propranolol HCl 60 Mg take 1 tablet (60MG) by oral route NEEDED for rapid heartbeats Fluticasone Propionate 0.005 % apply by topical route 2 times every day a thin l hima to the affected area(s) (temporary) Pantoprazole Sodium 40 Mg take 1 tablet (40MG) by oral route every day Centrum Silver take one tablet daily Estradiol 0.5 Mg take 1 tablet (0.5MG) by oral route every day Allergies/Intolerances: No Known Allergies Family History: Sister Diagnosed with CAD, two major attacks. Social History: Marital Status: Children: 3 Occupation: Retired Advance Directives: The patient has a living will Diet: Regular Exercise: Active Lifestyle Tobacco: Former user of cigarettes 1.50 pack(s) per day for 30.00 year(s). Quit in 1998 Alcohol: Currently drinks 2 glasses of wine daily Caffeine: Caffeine use: 1 cup of coffee ROS: 12-point review of systems is negative with the following exceptions: Constitutional: Fevers, Fatigue Pulmonary: Snore Cardiovascular: Chest Discomfort, Difficulty breathing while lying down, Shortn ess of breath, Lightheadedness /CLINICAL SYSTEMS EDUCATOR: Postmenopausal Musculoskeletal/Dermatology: Myalgias Endocrine/Psych: Feeling depressed Physical Exam: Vital Signs The patient is 5ft 5in tall, and weighs 142.40lbs. The BMI is 23.70 . Blood pressure taken in the left arm is 136/90 mmHg in the sitting position. The pulse is 63. The rhythm is regular. Const The patient [...] The abdominal aorta i s not palpable. Bowel sounds are present. Vasc Distal pulses 2+ throughout with no carotid bruits noted. EXT The extremities are warm to touch. There is no edema noted. M/S The patient's gait is normal. No joint or spine deformities are noted. Skin The skin is warm and dry. Neuro/Psych The patient is alert and oriented to time, person and place. The pa tient's mood is normal. EKG: Rhythm: Sinus Rate: 63 AV Conduction: Normal QRS [place] and Voltage: normal ST/T Wave Abnormalities: Nonspecific abnormality, ST segment Intervals: MA: 152 ms QRS: 85 ms QT: 403 ms QTc: 408 ms Impression and Plan: Arian Mock is a 69-year-old woman who presents for initial cardiac electrop hysiology evaluation as a new patient to evaluate symptoms of palpitations and t achycardia consistent with supraventricular tachycardia. Palpitations and tachycardia. A six beat episode of focal atrial tachycardia was recorded on the Holter monitor. I cannot exclude more significant arrhythmias s uch as atrial fibrillation or atrial flutter as a potential cause of her arrhyth mias. To this end we will obtain a 30 day non-looping event recorder. She is not very interested in wearing a device attached to her body for the entire month. I will make further recommendations after the result is available. In the meanti me, I gave her a prescription for as-needed propranolol 60 mg tablet use to be u sed for arrhythmia episodes. She would like to avoid daily medications at this t bharti but would be interested in taking systemic anticoagulation if we discover at rial fibrillation or atrial flutter as a cause of her symptoms. Testing ordered: Description Interval Event recorder - non-looping First Available EKG Today Follow up: Trip FUNG Thank you for allowing me to participate in ARIAN MOCK's care. If I can be of any further assistance, please do not hesitate to contact me. Sincerely, Trip BLAKE/marky F: 07/09/2014 documented in this encounter Plan of Treatment Not on filedocumented as of this encounter Visit Diagnoses Not on filedocumented in this encounter
== END 2020-05-07 10:10 | disposition left against medical advice (07) ==
LOC: EDUNIT# 09:54 → ER 09:55
DX: R50.9 Fever, unspecified (principal); Z53.21 Procedure and treatment not carried out due to patient leaving prior to being seen by health care provider

== ENCOUNTER → 2020-05-29 | Outpatient (CLI) | payer MEDICARE ==
--- NOTE | 2020-05-29 11:35 | Diagnostic Imaging Report ---
INDICATION: Routine screening. COMPARISON: 05/19/2019 and 05/18/2018. TECHNIQUE: 2D and 3D bilateral screening mammography was performed with CAD. FINDINGS: Both breasts remain heterogeneously dense, limiting the sensitivity of mammography. The parenchymal pattern appears stable. There are scattered benign calcifications. No dominant mass is detected. No malignant appearing microcalcifications are seen. The axillae are unremarkable. IMPRESSION: No mammographic features suspicious for malignancy are identified. ACR BI-RADS Category 2: Benign findings. Result letter will be mailed to the patient. Note: At least 10% of breast cancer is not imaged by mammography. Dictated by: Dictated on workstation # [id number]
== END ==
LOC: RAD 10:22
PROVIDERS: ATTEND Internal Medicine
DX: Z12.31 Encounter for screening mammogram for malignant neoplasm of breast (principal)
CPT/HCPCS: 77063; 77067

== ENCOUNTER → 2020-10-10 | Outpatient (CLI) | payer MEDICARE | LOC: LABNPT 05:47 | PROVIDERS: ATTEND Internal Medicine | DX: R05 Cough (principal); Z20.828 Contact with and (suspected) exposure to other viral communicable diseases | CPT/HCPCS: 87635 ==

== ENCOUNTER → 2021-06-18 | Outpatient (CLI) | payer MEDICARE ==
--- NOTE | 2021-06-18 12:52 | Diagnostic Imaging Report ---
Indication: Routine screening. Comparison is made with prior mammogram from 05/29/2027 and 05/19/2019. 2-D and 3-D bilateral screening mammography was performed with CAD. Both breasts are heterogeneously dense, limiting the sensitivity of mammography. The overall parenchymal pattern appears to be stable. There are scattered benign calcifications. No dominant mass or malignant-appearing microcalcifications are seen. Axillae are unremarkable. IMPRESSION: BI-RADS Category 2 No mammographic features suspicious for malignancy are identified. ACR BI-RADS Category 2: Benign findings. Result letter will be mailed to the patient. Note: At least 10% of breast cancer is not imaged by mammography. Dictated by: Dictated on workstation # [id number]
== END ==
LOC: RAD 09:49
PROVIDERS: ATTEND Internal Medicine
DX: Z12.31 Encounter for screening mammogram for malignant neoplasm of breast (principal)
CPT/HCPCS: 77063; 77067

== ENCOUNTER → 2021-08-09 | Outpatient (CLI) | payer MEDICARE ==
--- NOTE | 2021-08-09 09:08 | Diagnostic Imaging Report ---
INDICATION: Chronic cough and gastroesophageal reflux disease. TECHNIQUE: Two view chest 8:52 AM CORRELATION STUDY: 02/04/2019 FINDINGS: The heart size, mediastinal configuration and pulmonary vasculature are within normal limits. The lungs are clear with no consolidating infiltrate. There is no significant pleural effusion or pneumothorax. Presumably cholecystectomy clips right upper abdominal quadrant. Degenerative changes visualized spine. IMPRESSION: 1. Negative for acute abnormality of the chest. Dictated by: Dictated on workstation # [id number]
== END ==
LOC: RAD 08:21
PROVIDERS: ATTEND Internal Medicine
DX: K21.9 Gastro-esophageal reflux disease without esophagitis (principal)
CPT/HCPCS: 71046

== ENCOUNTER 2021-08-31 05:33 | Outpatient (RCR) | payer MEDICARE ==
[~2021-08-31] VITALS: Ht 162.6 cm; Wt 64.9 kg
== END 2021-08-31 08:33 | disposition home or self-care (01) ==
LOC: PREOP 05:33
PROVIDERS: ATTEND Surgery
DX: Z01.812 Encounter for preprocedural laboratory examination (principal); K21.9 Gastro-esophageal reflux disease without esophagitis; Z20.822 Contact with and (suspected) exposure to COVID-19
CPT/HCPCS: 87635

== ENCOUNTER 2021-09-04 12:23 | Day surgery (SDC) | payer MEDICARE ==
[~2021-09-04] VITALS: Ht 162.5 cm; Wt 64.9 kg
[2021-09-04] VITALS (7 sets, daily range): BP systolic 117–128; BP diastolic 56–75
[2021-09-04] MEDS ORDERED: LACTATED RINGERS 1,000 ML IV STA (12:24)
[2021-09-04] MEDS ORDERED: HURRICAINE EXT TUBE (BENZOCAINE) XX PRN (12:30)
[2021-09-04] MEDS ORDERED: LACTATED RINGERS 1,000 ML IV ONE (12:41)
[2021-09-04] MEDS ORDERED: MIDAZOLAM 2 MG/2 ML (VERSED) VIAL ONE (13:39)
[2021-09-04] MEDS ORDERED: proPOfol 200 MG/20 ML (DIPRIVAN) VIAL IV ONE (13:39)
--- NOTE | 2021-09-04 13:44 | Progress Note-Pre Operative ---
Pre-Operative Progress Note H&P Reviewed The H&P was reviewed, patient examined and no changes noted. Date Seen by Provider: Sep 04, 2021 Time Seen by Provider: 13:43 Date H&P Reviewed: Sep 04, 2021 Time H&P Reviewed: 13:43 Pre-Operative Diagnosis: epigastric abdominal pain, gerd SANTINO CHACON DO Sep 04, 2021 13:44
[2021-09-04] MEDS ORDERED: SUCR1TAB36 PO (14:39)
--- NOTE | 2021-09-04 14:39 | Discharge Inst-Simple/Standard ---
Discharge Inst-Standard Discharge Medications New, Converted or Re-Newed RX: Transmitted to Pharmacy Patient Instructions/Follow Up Plan of Care/Instructions/FU: 2 weeks Nancy Activity as Tolerated: Yes Discharge Diet: Regular Diet SANTINO CHACON DO Sep 04, 2021 14:39
--- NOTE | 2021-09-04 14:40 | Progress Note-Post Operative ---
Post-Operative Progess Note Surgeon (s)/Special Education Classroom Aide (s) Surgeon SANTINO CHACON DO Special Education Classroom Aide: na Pre-Operative Diagnosis epigastric abdominal pain, gerd Post-Operative Diagnosis gastritis hiatal hernia, Procedure & Operative Findings Date of Procedure 09/04/21 Procedure Performed/Findings egd c biopsies Anesthesia Type per oil deliverer Estimated Blood Loss Estimated blood loss (mL): none Specimens/Packing Specimens Removed antrum, ge SANTINO CHACON DO Sep 04, 2021 14:40
--- NOTE | 2021-09-04 20:28 | OPERATIVE REPORT ---
DATE OF SERVICE: 09/04/2021 PREOPERATIVE DIAGNOSES: Gastroesophageal reflux disease and epigastric abdominal pain. POSTOPERATIVE DIAGNOSES: Gastritis and hiatal hernia. PROCEDURES PERFORMED: EGD with biopsies. SURGEON: Santino Cruz DO ANESTHESIA: Per TEST AND BALANCE ENGINEER. ESTIMATED BLOOD LOSS: None. COMPLICATIONS: None. INDICATIONS FOR PROCEDURE: The patient is a 76-year-old female with epigastric abdominal pain and GERD symptoms. She understands the risks and benefits of the procedure and wishes to proceed. Consent was signed in the chart. DESCRIPTION OF PROCEDURE: The patient was taken to the endoscopy suite and placed in a left lateral recumbent position. Timeout was performed. Scope was inserted in the mouth, down the esophagus, stomach and into the duodenum without difficulty. There were no polyps, masses or ulcerations within the duodenum. Scope was slowly retracted back into the stomach, where it was further insufflated. Changes of gastritis were present in the antrum. Biopsy of the antrum was obtained. Scope was retroflexed noting a small hiatal hernia and multiple benign-appearing gastric polyps. Scope was returned to its normal position, slowly withdrawn to distal esophagus. There were no polyps, masses or ulcerations. Biopsy of the GE junction was obtained. Maybe some questionable Sheikh's present. Scope was then slowly retracted back until completely removed. The patient tolerated the procedure well without any complications. She was taken to the recovery room in stable condition. RECOMMENDATIONS: We will continue on Protonix. We will add Carafate 1 gram four times a day. The patient will follow up in two to three weeks to see the results and see how her symptoms are doing at that time. Job ID: [id number] DocumentID: [id number] Dictated Date: 09/04/2021 14:42:29 Disaster Recovery Coordinator Date: 09/04/2021 20:27:22 Dictated By: SANTINO CRUZ DO
--- NOTE | 2021-09-05 10:03 | Anesthesia-General Post-Op ---
MAC Patient Condition Mental Status/LOC: Same as Preop Cardiovascular: Satisfactory Nausea/Vomiting: Absent Respiratory: Satisfactory Pain: Controlled Complications: Absent Post Op Complications Complications None Follow Up Care/Instructions Patient Instructions None needed. Anesthesiology Discharge Order Discharge Order Patient is doing well, no complaints, stable vital signs, no apparent adverse anesthesia problems. No complications reported per nursing. GLENNY GAY CRNA Sep 05, 2021 10:02
== END 2021-09-04 15:15 | disposition home or self-care (01) ==
LOC: ENDO 12:23
PROVIDERS: ATTEND Surgery
DX: K29.70 Gastritis, unspecified, without bleeding (principal); K44.9 Diaphragmatic hernia without obstruction or gangrene; K21.00 Gastro-esophageal reflux disease with esophagitis, without bleeding; H81.09 Meniere's disease, unspecified ear; F32.A Depression, unspecified; Z87.891 Personal history of nicotine dependence; Z79.890 Hormone replacement therapy; Z85.820 Personal history of malignant melanoma of skin; Z79.899 Other long term (current) drug therapy

== ENCOUNTER → 2022-07-11 | Outpatient (CLI) | payer MEDICARE ==
[~2022-07-11] MED LIST changes: +SUCR1TAB36 PO
--- NOTE | 2022-07-11 21:10 | Diagnostic Imaging Report ---
INDICATION: Screening. EXAMINATION: 3D bilateral screening mammogram with CAD. The current study was also evaluated with a Computer Aided Detection (CAD) system. COMPARISON: This study was compared to the prior exams of 06/18/2021, 05/29/2020 and 05/19/2019. At this time there are no current complaints. FINDINGS: The fibroglandular tissue in both breasts is heterogeneously dense. This does limit the sensitivity of this exam. Overall, there does not appear to have been any significant change when compared to the prior study. No primary or secondary sign of malignancy is noted. IMPRESSION: There is no radiographic evidence for malignancy. ACR BI-RADS Category 1: Negative. Result letter will be mailed to the patient. Note: At least 10% of breast cancer is not imaged by mammography. Dictated by: Dictated on workstation # [id number]
== END ==
LOC: RAD 09:49
PROVIDERS: ATTEND Nurse Practitioner Family
DX: Z12.31 Encounter for screening mammogram for malignant neoplasm of breast (principal)
CPT/HCPCS: 77063; 77067

== ENCOUNTER → 2022-08-14 | Outpatient (CLI) | payer MEDICARE ==
[~2022-08-14] MED LIST changes: +CATHETER FLUSH 10 ML SYR IV PRN; +HOLD METFORMIN - RECEIVED CONTRAST 20 ML VIAL IV SCH; +IOHEXOL 350 MG/ML 100 ML (OMNIPAQUE 350) VIAL IV ONE; +NS 100 ML (IVPB) BAG IV ONE
[2022-08-14 11:17] LABS: HEMATOCRIT 42 % (35-52); HEMOGLOBIN 14.1 g/dL (11.5-16.0); MEAN CORPUSCULAR HEMOGLOBIN 31 pg (25-34); MEAN CORPUSCULAR HGB CONC 33 g/dL (32-36); MEAN CORPUSCULAR VOLUME 93 fL (80-99); MEAN PLATELET VOLUME 9.6 fL (9.0-12.2); PLATELET COUNT 312 10^3/uL (130-400); WHITE BLOOD COUNT 7.3 10^3/uL (4.3-11.0)
[2022-08-14 11:37] LABS: ALBUMIN 4.2 GM/DL (3.2-4.5); BILIRUBIN,TOTAL 0.5 MG/DL (0.1-1.0); CALCIUM 9.4 MG/DL (8.5-10.1); CREATININE SERUM 0.79 MG/DL (0.60-1.30); POTASSIUM 4.6 MMOL/L (3.6-5.0)
--- NOTE | 2022-08-14 12:27 | Diagnostic Imaging Report ---
PROCEDURE: CT abdomen and pelvis with contrast. TECHNIQUE: Multiple contiguous axial images were obtained through the abdomen and pelvis after administration of intravenous contrast. Auto Exposure Controls were utilized during the CT exam to meet ALARA standards for radiation dose reduction. All CT scans use one or more of the following dose optimizing techniques: automated exposure control, MA and/or KvP adjustment based on patient size and exam type or iterative reconstruction. DATE: August 14, 2022. COMPARISON: None. INDICATION: 77-year-old female, left lower quadrant abdominal pain. FINDINGS: The visualized portions of the lung bases are grossly clear. The heart is not enlarged. There is no pericardial effusion. The liver is unremarkable in size and contour. There is no identified liver lesion. The main, right, and left portal veins are patent. The gallbladder is surgically absent. There is no intrahepatic or extra hepatic bile duct dilation. The main pancreatic duct is not abnormally dilated. Unremarkable appearance of the pancreatic parenchyma. The spleen is normal in size. The adrenal glands are unremarkable. There is mild to moderate right and mild left hydronephrosis. There is no identified renal or ureteral stone. Urinary bladder is unremarkable. The uterus is not seen and may be surgically absent. The intestinal tract is not distended. There is no free intraperitoneal air. There is no drainable fluid collection. There is no free fluid in the abdomen or pelvis. There are atherosclerotic calcifications. There is no identified abnormally enlarged lymph node in the abdomen or pelvis which meets CT size criteria for adenopathy. There are multilevel degenerative changes of the spine. There is grade 1 anterolisthesis of L4 on L5 relating to facet arthropathy. IMPRESSION: CT ABDOMEN AND PELVIS. 1. Mild to moderate right and mild left hydronephrosis without identified cause of etiology. Dictated by: Dictated on workstation # [id number]
== END ==
LOC: RAD 10:44
PROVIDERS: ATTEND Physician Assistant
DX: N13.30 Unspecified hydronephrosis (principal); R19.7 Diarrhea, unspecified
CPT/HCPCS: 36415; 74177; 80053; 83690; 85027

== ENCOUNTER → 2022-10-07 | Outpatient (CLI) | payer MEDICARE ==
[~2022-10-07] MED LIST changes: -CATHETER FLUSH 10 ML SYR IV PRN; +CATHETER FLUSH 10 ML SYR IVP PRN; +FUROSEMIDE 40 MG/4 ML INJ (LASIX) IVP ONE; +FUROSEMIDE 40 MG/4 ML INJ (LASIX) ONE; -HOLD METFORMIN - RECEIVED CONTRAST 20 ML VIAL IV SCH; -IOHEXOL 350 MG/ML 100 ML (OMNIPAQUE 350) VIAL IV ONE; -NS 100 ML (IVPB) BAG IV ONE
--- NOTE | 2022-10-07 18:26 | Diagnostic Imaging Report ---
EXAMINATION: Nuclear medicine renal scintigraphy with Lasix. HISTORY: Bilateral hydronephrosis TECHNIQUE: Flow and functional dynamic images were obtained of the bilateral kidneys in the posterior projection following the administration of 5.0 mCi of Tc 99m-MAG3. Response to diuretic was also performed following the administration of 40 mg of Lasix at 15 minutes. FINDINGS: There is symmetric and homogenous perfusion to both kidneys. Kidneys are normal in size and location. There is symmetric cortical uptake to both kidneys. There is delayed excretion of radiotracer by the right kidney compared to the left prior to administration of Lasix. There is a prompt and symmetric response to Lasix by both kidneys. There is bilateral dilation of the renal pelves. Split renal function is 51% on the right and 49% on the left. Time to peak prior to Lasix is 14 minutes on the right and 4 minutes on the left. T1/2 of excretion after administration of Lasix is 5.5 minutes on the right and 5.5 minutes on the left. IMPRESSION: 1. Delayed excretion of contrast by the right kidney compared to the left prior to the administration of Lasix but a prompt and symmetric response by both kidneys to Lasix. Findings may be related to ureteropelvic junction obstructions, slightly worse on the right than the left. Dictated by: Dictated on workstation # [id number]
== END ==
LOC: CARD 13:27
PROVIDERS: ATTEND Urology
DX: N13.30 Unspecified hydronephrosis (principal)
CPT/HCPCS: 78708; A9562

== ENCOUNTER 2022-12-25 05:44 | Outpatient (CLI) | payer MEDICARE ==
[~2022-12-25] VITALS: Ht 162.6 cm; Wt 66.2 kg
[~2022-12-25 05:44] MED LIST changes: -CATHETER FLUSH 10 ML SYR IVP PRN; -FUROSEMIDE 40 MG/4 ML INJ (LASIX) IVP ONE; -FUROSEMIDE 40 MG/4 ML INJ (LASIX) ONE
[2022-12-25] MEDS ORDERED: ESCI5TAB PO (10:31)
[2022-12-25] MEDS ORDERED: FENO145T26 PO (10:31)
[2022-12-25] MEDS ORDERED: LORA10CA PO (10:31)
[2022-12-25] MEDS ORDERED: TRIA1CAP84 PO (10:31)
[2022-12-25] MEDS ORDERED: ESTR0.5T3 PO (10:31)
== END 2022-12-25 10:46 | disposition home or self-care (01) ==
LOC: PREOP 05:44
PROVIDERS: ATTEND Surgery
DX: Z01.818 Encounter for other preprocedural examination (principal)

== ENCOUNTER 2023-01-07 08:30 | Day surgery (SDC) | payer MEDICARE ==
[~2023-01-07] VITALS: Ht 162.5 cm; Wt 66.2 kg
[~2023-01-07 08:30] MED LIST changes: +ESCI5TAB PO; +ESTR0.5T3 PO; +FENO145T26 PO; +LORA10CA PO; +TRIA1CAP84 PO
[2023-01-07] MEDS ORDERED: LACTATED RINGERS 1,000 ML IV STA (08:34)
[2023-01-07 09:00] VITALS: BP 114/60
[2023-01-07] MEDS ORDERED: PROPOFOL INJECTION 50 ML IV ONE (09:16)
--- NOTE | 2023-01-07 09:47 | Progress Note-Post Operative ---
Post-Operative Progess Note Surgeon (s)/Medical Office Representative (s) Surgeon SANTINO CHACON DO Medical Office Representative: na Pre-Operative Diagnosis h/o polyps; screening colonoscopy Post-Operative Diagnosis Ascending colon poyp Procedure & Operative Findings Date of Procedure 01/07/23 Procedure Performed/Findings colonoscopy with hot biopsy polypectomy x1 Anesthesia Type per certified medical coder Estimated Blood Loss Estimated blood loss (mL): none Specimens/Packing Specimens Removed ascending colon polyp SANTINO CHACON DO Jan 07, 2023 09:47
[2023-01-07 09:51] VITALS: BP 101/51
[2023-01-07 09:56] VITALS: BP 101/55
--- NOTE | 2023-01-07 09:56 | Discharge Inst-Simple/Standard ---
Discharge Inst-Standard Discharge Medications New, Converted or Re-Newed RX: Transmitted to Pharmacy Patient Instructions/Follow Up Plan of Care/Instructions/FU: 2 weeks Nancy Activity as Tolerated: Yes Discharge Diet: Regular Diet SANTINO CHACON DO Jan 07, 2023 09:49
[2023-01-07 10:01] VITALS: BP 109/58
[2023-01-07 10:05] VITALS: BP 109/58
[2023-01-07 10:33] VITALS: BP 109/58
[2023-01-07] MEDS ORDERED: LACTATED RINGERS 1,000 ML IV ONE (11:35)
--- NOTE | 2023-01-07 11:46 | Anesthesia-General Post-Op ---
MAC Patient Condition Mental Status/LOC: Same as Preop Cardiovascular: Satisfactory Nausea/Vomiting: Absent Respiratory: Satisfactory Pain: Controlled Complications: Absent Post Op Complications Complications None Follow Up Care/Instructions Patient Instructions None needed. Anesthesiology Discharge Order Discharge Order Patient is doing well, no complaints, stable vital signs, no apparent adverse anesthesia problems. No complications reported per nursing. ROSA M EL CRNA Jan 07, 2023 11:46
--- NOTE | 2023-01-07 14:03 | OPERATIVE REPORT ---
DATE OF SERVICE: 01/07/2023 PREOPERATIVE DIAGNOSIS: History of polyps. POSTOPERATIVE DIAGNOSIS: Ascending colon polyp. PROCEDURE: Colonoscopy with hot biopsy polypectomy x1. SURGEON: Santino Cruz DO ANESTHESIA: Per ROTARY SHEAR CUTTER. ESTIMATED BLOOD LOSS: None. COMPLICATIONS: None. INDICATIONS: The patient is a 77-year-old female with history of polyps. She wished to have colonoscopy. She understands risks and benefits and wishes to proceed. Consent was signed in chart. DESCRIPTION OF PROCEDURE: The patient was taken to endoscopy suite, placed in left lateral recumbent position. Timeout was performed. Digital rectal exam was performed. No palpable polyps, masses or ulcerations. Scope was inserted in the rectum, advanced all the way to the cecum with minimal difficulty. No polyps, masses or ulcerations in the cecum, visualized. The ascending colon had a larger flat polyp was present, which hot biopsy polypectomy was performed. A scope was then continuously retracted back. No polyps, masses or ulcerations within the remainder of the ascending, transverse, descending and sigmoid colon. Once in the rectum, scope was retroflexed, noting no other pathology. Scope was slowly returned back to normal position, slowly withdrawn until completely removed. The patient tolerated the procedure well without complications, taken to recovery room in stable condition. RECOMMENDATIONS: The patient will follow up in the office in 2 weeks to discuss pathology results. Does not need any further colonoscopies unless warranted by symptomatology. CC: Dr. Julieta Varghese ? requested, unable to deliver Job ID: [id number] DocumentID: [id number] Dictated Date: 01/07/2023 09:58:53 Muffle Operator Date: 01/07/2023 14:01:00 Dictated By: SANTINO CRUZ DO
== END 2023-01-07 10:33 | disposition home or self-care (01) ==
LOC: ENDO 08:30
PROVIDERS: ATTEND Surgery
DX: Z12.11 Encounter for screening for malignant neoplasm of colon (principal); D12.2 Benign neoplasm of ascending colon; Z87.891 Personal history of nicotine dependence; Z85.820 Personal history of malignant melanoma of skin
CPT/HCPCS: 88305